=== PATIENT | female | born 1960 | race Caucasian/White ===

== ENCOUNTER 2017-11-07 12:24 | Inpatient (IN) | payer BC ==
[2017-11-07] MEDS ORDERED: SALINE 3% 15 ML NEB TX NEB ONE (13:00)
[2017-11-07] MEDS: DUONEB 0.5 MG/3 MG NEB SCH ×4 (13:00→20:47)
[2017-11-07] MEDS: NS 1/2 1000 ML IV 1,000 ML IV SCH (14:08)
[2017-11-07] MEDS ORDERED: DUONEB 0.5 MG/3 MG ONE (14:15)
[2017-11-07 14:26] VITALS: BMI 37.8
[2017-11-07] MEDS ORDERED: FLUVIRIN IM ONE (14:26)
[2017-11-07] MEDS ORDERED: SALINE 3% 15 ML NEB TX ONE (14:27)
[2017-11-07 14:37] LABS: ALANINE AMINOTRANSFERASE 31 Units/L (12-78); ALBUMIN 3.5 g/dL (3.4-5.0); ALKALINE PHOSPHATASE 137 Units/L (46-116); ASPARTATE AMINO TRANSFERASE 25 Units/L (15-37); BLOOD UREA NITROGEN 12 mg/dL (7-18); CALCIUM 9.1 mg/dL (8.5-10.1); CARBON DIOXIDE 26.6 mmol/L (21-32); CHLORIDE 107 mmol/L (98-107); CREATININE 0.83 mg/dL (0.55-1.02); SODIUM 143 mmol/L (136-145); eGFR BLACK RACES > 60 (>60); eGFR NON BLACK RACES > 60 (>60)
--- NOTE | 2017-11-07 14:37 | RAD ---
HISTORY: Pneumonia, cough Study: PA and lateral views of the chest Comparison:None Findings: No infiltrate, effusion or pneumothorax identified. The cardiac and mediastinal contours are within normal limits. The soft tissues are unremarkable. IMPRESSION: 1. No acute cardiopulmonary abnormality. Reported By:
[2017-11-07 14:46] LABS: BASOPHILS # (AUTO) 0.1 X10^3/uL (0.0-0.1); BASOPHILS % (AUTO) 0.8 % (0.2-1.0); EOSINOPHILS # (AUTO) 0.2 x10^3/uL (0.0-0.2); EOSINOPHILS % (AUTO) 2.6 % (0.9-2.9); HEMATOCRIT 36.8 % (36.0-47.0); HEMOGLOBIN 12.8 g/dL (12.0-16.0); LYMPHOCYTES # (AUTO) 2.4 X10^3/uL (1.3-2.9); LYMPHOCYTES % (AUTO) 33.1 % (21.0-51.0); MEAN CORPUSCULAR HEMOGLOBIN 30.1 pg (27.0-34.0); MEAN CORPUSCULAR HGB CONC 34.7 g/dL (33.0-35.0); MEAN CORPUSCULAR VOLUME 86.8 fL (80.0-100.0); MEAN PLATELET VOLUME 7.9 fL (7.4-11.0); MONOCYTES # (AUTO) 0.5 x10^3/uL (0.3-0.8); MONOCYTES % (AUTO) 7.4 % (0.0-13.0); NEUTROPHILS # (AUTO) 4.1 x10^3/uL (2.2-4.8); NEUTROPHILS % (AUTO) 56.1 % (42.0-75.0); PLATELET COUNT 193 X10^3/uL (150.0-450.0); RED BLOOD COUNT 4.24 X10^6/uL (3.5-5.4); WHITE BLOOD COUNT 7.4 X10^3/uL (3.6-10.0)
[2017-11-07] MEDS: LEVAQUIN PREMIX IV 750 MG 750 MG/150 ML BAG IV SCH (15:42)
[2017-11-07] MEDS: ROBITUSSIN DM PO SCH ×2 (16:06→21:57)
[2017-11-07] MEDS: TUSSIONEX PENNKINETIC SUSP PO PRN (22:54)
[2017-11-08] MEDS: DUONEB 0.5 MG/3 MG NEB SCH ×6 (01:12→21:49)
[2017-11-08] MEDS ORDERED: NS 1/2 1000 ML IV 1,000 ML IV ONE ×2 (03:39→20:01)
[2017-11-08] MEDS ORDERED: DUONEB 0.5 MG/3 MG ONE (03:43)
[2017-11-08] MEDS: NS 1/2 1000 ML IV 1,000 ML IV SCH ×2 (04:03→20:21)
[2017-11-08 06:43] LABS: ALANINE AMINOTRANSFERASE 29 Units/L (12-78); ALKALINE PHOSPHATASE 114 Units/L (46-116); ASPARTATE AMINO TRANSFERASE 16 Units/L (15-37); BLOOD UREA NITROGEN 10 mg/dL (7-18); CALCIUM 8.2 mg/dL (8.5-10.1); CARBON DIOXIDE 25.7 mmol/L (21-32); CHLORIDE 107 mmol/L (98-107); CREATININE 0.87 mg/dL (0.55-1.02); SODIUM 142 mmol/L (136-145); TOTAL PROTEIN 6.2 g/dL (6.4-8.2); eGFR BLACK RACES > 60 (>60); eGFR NON BLACK RACES > 60 (>60)
[2017-11-08 06:45] LABS: BASOPHILS % (AUTO) 0.6 % (0.2-1.0); EOSINOPHILS # (AUTO) 0.1 x10^3/uL (0.0-0.2); EOSINOPHILS % (AUTO) 2.1 % (0.9-2.9); HEMATOCRIT 34.9 % (36.0-47.0); HEMOGLOBIN 12.3 g/dL (12.0-16.0); LYMPHOCYTES # (AUTO) 2.3 X10^3/uL (1.3-2.9); LYMPHOCYTES % (AUTO) 39.1 % (21.0-51.0); MEAN CORPUSCULAR HEMOGLOBIN 30.5 pg (27.0-34.0); MEAN CORPUSCULAR HGB CONC 35.2 g/dL (33.0-35.0); MEAN CORPUSCULAR VOLUME 86.7 fL (80.0-100.0); MEAN PLATELET VOLUME 8.1 fL (7.4-11.0); MONOCYTES # (AUTO) 0.5 x10^3/uL (0.3-0.8); NEUTROPHILS % (AUTO) 50.2 % (42.0-75.0); PLATELET COUNT 171 X10^3/uL (150.0-450.0); RED BLOOD COUNT 4.03 X10^6/uL (3.5-5.4); RED CELL DISTRIBUTION WIDTH 13.2 % (11.6-16.5)
--- NOTE | 2017-11-08 07:30 | RAD ---
HISTORY: Cough, pneumonia Study: Chest AP portable Comparison: 11/07/2017 Findings: The heart is within normal limits in size. The candy are normal. The lungs are well inflated and free of acute infiltrates. No pleural effusions are identified. The bony thorax is unremarkable. IMPRESSION: No significant abnormality identified Reported By:
[2017-11-08] MEDS ORDERED: ATIVAN TAB 0.5 MG PO PRN (08:17)
[2017-11-08] MEDS: ROBITUSSIN DM PO SCH ×4 (08:21→20:22)
[2017-11-08] MEDS: LEVAQUIN PREMIX IV 750 MG 750 MG/150 ML BAG IV SCH (08:21)
[2017-11-08] MEDS ORDERED: TYLENOL 325 MG TAB PO PRN (08:27)
[2017-11-08] MEDS: CELEXA PO SCH (08:34)
[2017-11-08] MEDS: TUSSIONEX PENNKINETIC SUSP PO PRN ×2 (08:35→20:22)
--- NOTE | 2017-11-08 10:27 | DR.UPDATE ---
H&P Update History and Physical Update: WAS SEEN IN THE OFFICE ON 11/07/2017. A H&P WAS COMPLETED PRIOR TO ADMISSION. PATIENT HAS BEEN SEEN AND EXAMINED WITH NO CHANGES NOTED TO H&P. Changes noted: NO Yes with the following:
[2017-11-09] MEDS: DUONEB 0.5 MG/3 MG NEB SCH ×3 (01:28→08:30)
[2017-11-09 06:51] LABS: BASOPHILS % (AUTO) 0.7 % (0.2-1.0); EOSINOPHILS # (AUTO) 0.2 x10^3/uL (0.0-0.2); EOSINOPHILS % (AUTO) 3.5 % (0.9-2.9); HEMOGLOBIN 12.8 g/dL (12.0-16.0); LYMPHOCYTES # (AUTO) 2.3 X10^3/uL (1.3-2.9); MEAN CORPUSCULAR HEMOGLOBIN 30.7 pg (27.0-34.0); MEAN CORPUSCULAR HGB CONC 35.5 g/dL (33.0-35.0); MEAN CORPUSCULAR VOLUME 86.2 fL (80.0-100.0); MONOCYTES # (AUTO) 0.4 x10^3/uL (0.3-0.8); MONOCYTES % (AUTO) 7.5 % (0.0-13.0); NEUTROPHILS # (AUTO) 2.9 x10^3/uL (2.2-4.8); NEUTROPHILS % (AUTO) 49.3 % (42.0-75.0); PLATELET COUNT 181 X10^3/uL (150.0-450.0); RED BLOOD COUNT 4.18 X10^6/uL (3.5-5.4); RED CELL DISTRIBUTION WIDTH 13.2 % (11.6-16.5); WHITE BLOOD COUNT 5.8 X10^3/uL (3.6-10.0)
[2017-11-09 07:23] LABS: ALANINE AMINOTRANSFERASE 29 Units/L (12-78); ALBUMIN 3.2 g/dL (3.4-5.0); ALKALINE PHOSPHATASE 114 Units/L (46-116); ASPARTATE AMINO TRANSFERASE 20 Units/L (15-37); BLOOD UREA NITROGEN 12 mg/dL (7-18); CALCIUM 8.2 mg/dL (8.5-10.1); CARBON DIOXIDE 26.3 mmol/L (21-32); CHLORIDE 104 mmol/L (98-107); COR CA(FOR HYPOALB) 8.8 mg/dL (8.5-10.1); CREATININE 0.94 mg/dL (0.55-1.02); SODIUM 139 mmol/L (136-145); TOTAL PROTEIN 6.3 g/dL (6.4-8.2); eGFR BLACK RACES > 60 (>60); eGFR NON BLACK RACES > 60 (>60)
--- NOTE | 2017-11-09 08:15 | RAD ---
HISTORY: Cough, pneumonia Study: Chest AP portable Comparison: 11/08/2017 Findings: The heart is within normal limits in size. The candy are normal. The lungs are well inflated and clear . No pleural effusions are identified. The bony thorax is unremarkable. IMPRESSION: No significant abnormality identified Reported By:
[2017-11-09] MEDS: ROBITUSSIN DM PO SCH (08:30)
[2017-11-09] MEDS: LEVAQUIN PREMIX IV 750 MG 750 MG/150 ML BAG IV SCH (08:30)
[2017-11-09] MEDS: CELEXA PO SCH (08:30)
[2017-11-09 09:26] VITALS: BP 144/67
== END 2017-11-09 13:10 | disposition home or self-care (01) | DRG 195 ==
LOC: OBS 12:24
PROVIDERS: ADMIT Internal Medicine; ATTEND Internal Medicine
DX: J18.8 Other pneumonia, unspecified organism (principal); F32.89 Other specified depressive episodes; R50.9 Fever, unspecified
CPT/HCPCS: 36415; 71045; 71046; 80053; 85025; 87040; 90686; 94640; 94760; A4222; G0378; J1956; J7620

== ENCOUNTER 2022-11-21 15:34 | Observation (INO) ==
[2022-11-21] MEDS ORDERED: REMDESIVIR 200 MG in NS 250 ML IV 250 ML IV ONE (16:05)
--- NOTE | 2022-11-21 16:42 | EKG ---
Test Reason : chest pain Blood Pressure : */* mmHG Vent. Rate : 84 BPM Atrial Rate : 84 BPM P-R Int : 134 ms QRS Dur : 80 ms QT Int : 372 ms P-R-T Axes : 50 -16 41 degrees QTc Int : 439 ms Normal sinus rhythm with sinus arrhythmia Possible Inferior infarct , age undetermined Cannot rule out Anterior infarct , age undetermined Abnormal ECG No previous ECGs available Confirmed by Ed De La Cruz ([id number]) on 11/24/2022 5:34:00 PM Referred By: Confirmed By: Ed De La Cruz
[2022-11-21 16:50] LABS: BASOPHILS % (AUTO) 0.6 % (0.2-1.0); EOSINOPHILS # (AUTO) 0.1 x10^3/uL (0.0-0.2); HEMATOCRIT 40.2 % (36.0-47.0); LYMPHOCYTES # (AUTO) 1.1 X10^3/uL (1.3-2.9); LYMPHOCYTES % (AUTO) 18.9 % (21.0-51.0); MEAN CORPUSCULAR HEMOGLOBIN 30.1 pg (27.0-34.0); MEAN CORPUSCULAR HGB CONC 34.8 g/dL (33.0-35.0); MEAN CORPUSCULAR VOLUME 86.4 fL (80.0-100.0); MEAN PLATELET VOLUME 7.8 fL (7.4-11.0); MONOCYTES # (AUTO) 0.6 x10^3/uL (0.3-0.8); MONOCYTES % (AUTO) 11.5 % (0.0-13.0); NEUTROPHILS # (AUTO) 3.7 x10^3/uL (2.2-4.8); RED BLOOD COUNT 4.65 X10^6/uL (3.5-5.4); RED CELL DISTRIBUTION WIDTH 13.4 % (11.6-16.5); WHITE BLOOD COUNT 5.6 X10^3/uL (3.6-10.0)
[2022-11-21 16:56] VITALS: BMI 32.5
[2022-11-21 17:02] LABS: ALANINE AMINOTRANSFERASE 23 Units/L (12-78); ALBUMIN 3.6 g/dL (3.4-5.0); ALKALINE PHOSPHATASE 132 Units/L (46-116); ASPARTATE AMINO TRANSFERASE 24 Units/L (15-37); BLOOD UREA NITROGEN 8 mg/dL (7-18); CALCIUM 8.6 mg/dL (8.5-10.1); CARBON DIOXIDE 24.8 mmol/L (21-32); CHLORIDE 99 mmol/L (98-107); SODIUM 135 mmol/L (136-145); TOTAL PROTEIN 6.8 g/dL (6.4-8.2); eGFR NON BLACK RACES 54 (>60)
[2022-11-21] MEDS ORDERED: K-RIDER 10 MEQ/NS 100 ML 10 MEQ/100 ML BAG IV PRN (17:11)
[2022-11-21] MEDS ORDERED: MAGNESIUM SULFATE 1 GRAM/100 mL PREMIX 1 G/100 ML BAG IV PRN (17:11)
[2022-11-21] MEDS ORDERED: POTASSIUM CHLORIDE LIQ 20 MEQ UDC PO PRN (17:11)
[2022-11-21] MEDS ORDERED: MICRO K EXTEN CAP 10 MEQ PO PRN (17:11)
[2022-11-21] MEDS ORDERED: K-DUR TAB 20 MEQ PO PRN (17:11)
[2022-11-21] MEDS ORDERED: POTASSIUM CHL 40 MEQ/NS 0.45% 500 ML IV PRN (17:11)
[2022-11-21] MEDS ORDERED: KLOR-CON PO PRN (17:11)
[2022-11-21] MEDS ORDERED: POTASSIUM CHL 60 MEQ/NS 0.45% 500 ML IV PRN (17:11)
[2022-11-21] MEDS ORDERED: NS 1/2 1,000 ML IV 1,000 ML IV ONE (17:44)
[2022-11-21] MEDS: NS 1/2 1,000 ML IV 1,000 ML IV SCH (18:07)
[2022-11-21] MEDS: LEVAQUIN PREMIX IV 750 MG 750 MG/150 ML BAG IV SCH (18:08)
[2022-11-21] MEDS: VSL#3 PO SCH (18:08)
[2022-11-21] MEDS: SOLU-Medrol 40 MG VIAL IVP SCH ×2 (18:08→21:00)
[2022-11-21] MEDS: ROBITUSSIN DM PO SCH ×2 (18:08→20:47)
[2022-11-21] MEDS: TYLENOL 325 MG TAB PO PRN (20:05)
[2022-11-21] MEDS: PULMICORT NEB TX 0.5 MG NEB SCH (21:05)
[2022-11-21] MEDS: XOPENEX 1.25 MG/3 ML NEBULE NEB SCH (21:05)
--- NOTE | 2022-11-21 21:07 | EKG ---
Test Reason : Abnormal EKG Blood Pressure : */* mmHG Vent. Rate : 80 BPM Atrial Rate : 80 BPM P-R Int : 128 ms QRS Dur : 70 ms QT Int : 398 ms P-R-T Axes : 49 -14 14 degrees QTc Int : 459 ms Normal sinus rhythm Possible Inferior infarct (cited on or before 21-NOV-2022) Abnormal ECG When compared with ECG of 21-NOV-2022 16:36, (Unconfirmed) Questionable change in initial forces of Inferior leads ST now depressed in Inferior leads Confirmed by Ed De La Cruz (4) on 11/24/2022 5:33:33 PM Referred By: Confirmed By: Ed De La Cruz
[2022-11-21] MEDS: NYSTATIN POWDER TOP SCH (21:24)
--- NOTE | 2022-11-21 21:27 | RAD ---
HISTORYPneumoniaSTUDYCHEST, 1 VIEWCOMPARISONNone availableTECHNIQUEChest radiographic imaging, AP portable projection, 1 imageFINDINGSNo cardiomegaly.No focal airspace disease.No pleural effusion.No pneumothorax.No acute osseous abnormality.IMPRESSIONNo imaging findings of acute cardiopulmonary disease.Electronically signed by: Will Allan (Nov 21, 2022 21:26:37)
--- NOTE | 2022-11-22 02:54 | EKG ---
Test Reason : Abnormal EKG Blood Pressure : */* mmHG Vent. Rate : 77 BPM Atrial Rate : 77 BPM P-R Int : 134 ms QRS Dur : 78 ms QT Int : 412 ms P-R-T Axes : 48 -14 34 degrees QTc Int : 466 ms Normal sinus rhythm Possible Anterolateral infarct , age undetermined Abnormal ECG When compared with ECG of 21-NOV-2022 21:01, (Unconfirmed) Borderline criteria for Anterolateral infarct are now present Borderline criteria for Inferior infarct are no longer present Confirmed by Ed De La Cruz (4) on 11/24/2022 5:33:19 PM Referred By: Confirmed By: Ed De La Cruz
[2022-11-22 03:17] LABS: BASOPHILS % (AUTO) 0.2 % (0.2-1.0); EOSINOPHILS % (AUTO) 0.1 % (0.9-2.9); HEMATOCRIT 37.9 % (36.0-47.0); HEMOGLOBIN 13.2 g/dL (12.0-16.0); LYMPHOCYTES # (AUTO) 0.5 X10^3/uL (1.3-2.9); LYMPHOCYTES % (AUTO) 15.1 % (21.0-51.0); MEAN CORPUSCULAR HEMOGLOBIN 29.8 pg (27.0-34.0); MEAN CORPUSCULAR VOLUME 85.2 fL (80.0-100.0); MEAN PLATELET VOLUME 7.7 fL (7.4-11.0); MONOCYTES # (AUTO) 0.1 x10^3/uL (0.3-0.8); MONOCYTES % (AUTO) 2.3 % (0.0-13.0); NEUTROPHILS # (AUTO) 2.5 x10^3/uL (2.2-4.8); NEUTROPHILS % (AUTO) 82.3 % (42.0-75.0); RED BLOOD COUNT 4.44 X10^6/uL (3.5-5.4); RED CELL DISTRIBUTION WIDTH 13.2 % (11.6-16.5)
[2022-11-22 03:21] LABS: ALANINE AMINOTRANSFERASE 46 Units/L (12-78); ALBUMIN 3.1 g/dL (3.4-5.0); ALKALINE PHOSPHATASE 130 Units/L (46-116); ASPARTATE AMINO TRANSFERASE 51 Units/L (15-37); BLOOD UREA NITROGEN 8 mg/dL (7-18); CALCIUM 8.1 mg/dL (8.5-10.1); CARBON DIOXIDE 25.4 mmol/L (21-32); CHLORIDE 103 mmol/L (98-107); COR CA(FOR HYPOALB) 8.8 mg/dL (8.5-10.1); COR NA(FOR HYPERGLY) 137 mmol/L (136-145); CREATINE KINASE 46 Units/L (26-192); CREATININE 0.86 mg/dL (0.55-1.02); SODIUM 136 mmol/L (136-145); TOTAL PROTEIN 6.4 g/dL (6.4-8.2); eGFR NON BLACK RACES > 60 (>60)
[2022-11-22] MEDS: SOLU-Medrol 40 MG VIAL IVP SCH ×3 (05:05→21:00)
[2022-11-22] MEDS: NS 1/2 1,000 ML IV 1,000 ML IV SCH ×3 (05:06→20:44)
[2022-11-22] MEDS: TUSSIONEX PENNKINETIC SUSP PO PRN ×2 (05:09→20:44)
[2022-11-22] MEDS: XOPENEX 1.25 MG/3 ML NEBULE NEB SCH ×3 (06:10→20:30)
[2022-11-22] MEDS: ROBITUSSIN DM PO SCH ×4 (08:01→20:44)
[2022-11-22] MEDS: VSL#3 PO SCH (08:01)
[2022-11-22] MEDS: LEVAQUIN PREMIX IV 750 MG 750 MG/150 ML BAG IV SCH (08:02)
[2022-11-22] MEDS: PULMICORT NEB TX 0.5 MG NEB SCH ×2 (08:45→20:30)
[2022-11-22] MEDS: NYSTATIN POWDER TOP SCH ×2 (09:30→20:44)
[2022-11-22] MEDS: REMDESIVIR 100 MG in NS 250 ML IV 250 ML IV SCH (09:39)
--- NOTE | 2022-11-22 11:52 | CT ---
HISTORYELEVATED D DIMER, COVID.brSTUDYCTA CHESTCOMPARISONChest radiograph from 1 day prior.TECHNIQUECTA chest protocol with axial images from the thoracic inlet to upper abdomen with IV contrast. Sagittal and coronal reformats and MIP images were created. Automated exposure control was utilized.FINDINGSThe visualized thyroid gland appears benign. Mildly atherosclerotic normal caliber thoracic aorta. Mildly suboptimal contrast bolus timing. Normal caliber and patent central pulmonary artery. No discernible PE in the peripheral pulmonary vessels. The heart is normal in size. Trace pericardial effusion. No pathologic adenopathy in the thorax. Status post cholecystectomy. No acute osseous abnormality. The trachea and mainstem bronchi appear patent. No consolidation or segmental lung collapse. No pleural effusion or pneumothorax.IMPRESSIONNo discernible PE.Electronically signed by: Jamie Sanderson (Nov 22, 2022 11:51:26)
[2022-11-22] MEDS ORDERED: NS 1/2 1,000 ML IV 1,000 ML IV ONE (14:33)
[2022-11-23] MEDS ORDERED: NS 1/2 1,000 ML IV 1,000 ML IV ONE ×2 (03:28→07:59)
[2022-11-23] MEDS: NS 1/2 1,000 ML IV 1,000 ML IV SCH ×4 (03:35→23:20)
[2022-11-23 04:57] LABS: BASOPHILS % (AUTO) 0.1 % (0.2-1.0); HEMATOCRIT 35.3 % (36.0-47.0); HEMOGLOBIN 12.5 g/dL (12.0-16.0); LYMPHOCYTES # (AUTO) 0.9 X10^3/uL (1.3-2.9); LYMPHOCYTES % (AUTO) 11.4 % (21.0-51.0); MEAN CORPUSCULAR HEMOGLOBIN 30.3 pg (27.0-34.0); MEAN CORPUSCULAR HGB CONC 35.5 g/dL (33.0-35.0); MEAN CORPUSCULAR VOLUME 85.5 fL (80.0-100.0); MEAN PLATELET VOLUME 8.1 fL (7.4-11.0); MONOCYTES # (AUTO) 0.5 x10^3/uL (0.3-0.8); MONOCYTES % (AUTO) 5.9 % (0.0-13.0); NEUTROPHILS # (AUTO) 6.4 x10^3/uL (2.2-4.8); NEUTROPHILS % (AUTO) 82.6 % (42.0-75.0); RED BLOOD COUNT 4.13 X10^6/uL (3.5-5.4); RED CELL DISTRIBUTION WIDTH 13.1 % (11.6-16.5); WHITE BLOOD COUNT 7.7 X10^3/uL (3.6-10.0)
[2022-11-23 05:15] LABS: ALANINE AMINOTRANSFERASE 62 Units/L (12-78); ALBUMIN 2.9 g/dL (3.4-5.0); ALKALINE PHOSPHATASE 116 Units/L (46-116); ASPARTATE AMINO TRANSFERASE 41 Units/L (15-37); BLOOD UREA NITROGEN 13 mg/dL (7-18); CALCIUM 8.1 mg/dL (8.5-10.1); CARBON DIOXIDE 26.7 mmol/L (21-32); CHLORIDE 104 mmol/L (98-107); COR NA(FOR HYPERGLY) 139 mmol/L (136-145); CREATININE 0.82 mg/dL (0.55-1.02); SODIUM 138 mmol/L (136-145); TOTAL PROTEIN 5.9 g/dL (6.4-8.2); eGFR NON BLACK RACES > 60 (>60)
[2022-11-23] MEDS: SOLU-Medrol 40 MG VIAL IVP SCH ×3 (06:01→21:43)
[2022-11-23] MEDS: XOPENEX 1.25 MG/3 ML NEBULE NEB SCH ×3 (06:39→20:10)
--- NOTE | 2022-11-23 07:32 | RAD ---
HISTORYSOB, CHEST PAINSTUDYCHEST, 1 [id number]/14/2023.TECHNIQUEPA or AP view of the chestFINDINGSPatient is significantly rotated. Cardiac and mediastinal contours are within normal limits. Curvilinear right medial base opacity consistent with subsegmental atelectasis. Lungs are otherwise clear. No definite pleural effusion or pneumothorax.IMPRESSIONMinor right base subsegmental atelectasis.Electronically signed by: Jamie Sanderson (Nov 23, 2022 07:31:35)
[2022-11-23] MEDS: ROBITUSSIN DM PO SCH ×4 (08:19→21:43)
[2022-11-23] MEDS: LEVAQUIN PREMIX IV 750 MG 750 MG/150 ML BAG IV SCH (08:19)
[2022-11-23] MEDS: VSL#3 PO SCH (08:19)
[2022-11-23] MEDS: TYLENOL 325 MG TAB PO PRN (08:19)
[2022-11-23] MEDS: NYSTATIN POWDER TOP SCH ×2 (08:20→21:43)
[2022-11-23] MEDS: REMDESIVIR 100 MG in NS 250 ML IV 250 ML IV SCH (08:20)
[2022-11-23] MEDS: PULMICORT NEB TX 0.5 MG NEB SCH ×2 (08:36→20:10)
[2022-11-23] MEDS ORDERED: REMDESIVIR 100 MG in NS 250 ML IV 250 ML IV ONE (11:12)
--- NOTE | 2022-11-23 11:16 | DR.UPDATE ---
H&P Update H&P Reviewed: Yes Any changes to H&P?: Yes Changes noted:: PRESENTED TO THE OFFICE WITH REPORTS OF COUGH, CONGESTION, FEVER, HEADACHE, AND BODY ACHES. SHE REPORTS SHORTNESS OF BREATH AND CHEST DISCOMFORT AT TIMES. SHE DESCRIBES CHEST PRESSURE RATHER THAN PAIN. SHE DESCRIBES HEADACHE DULL AND THROBBING. SHE RATES PAIN A 4/10. SHE REPORTEDLY TESTED POSITIVE FOR COVID-19 TWO DAYS PRIOR. PATIENT HAS A PMH OF ASTHMA AND CHRONIC BRONCHITIS. SHE IS SUSCEPTIBLE TO PNEUMONIA. DECISION WAS MADE TO ADMIT THE PATIENT TO THE HOSPITAL OBSERVATION STATUS FOR FURTHER EVALUATION AND TREATMENT. ON ADMISSION, VITALS WERE: 97.9-98-18-95%-109/72. LABS WERE OBTAINED. WBC 5.6, RBC 4.65, HGB 14.0, HCT 40.2, PLT COUNT 177, D-DIMER 1.12, SODIUM 135, POTASSIUM 3.3, CHLORIDE 99, BUN 8, CREATININE 1.10, GLUCOSE 93, CALCIUM 8.6, AST 24, ALT 23, ALK PHOS 132, CRP 49, BNP 92.4, TOTAL PROTEIN 6.8, ALBUMIN 3.6, TROPONIN 7.2. A RESPIRATORY VIRAL PANEL WAS ST UP. BLOOD CULTURES WERE ALSO SET UP. A CHEST XRAY WAS OBTAINED AND REVEALED: No imaging findings of acute cardiopulmonary disease. WE OBTAINED A CHEST CTA. IT REVEALED: The visualized thyroid gland appears benign. Mildly atherosclerotic normal caliber thoracic aorta. Mildly suboptimal contrast bolus timing. Normal caliber and patent central pulmonary artery. No discernible PE in the peripheral pulmonary vessels. The heart is normal in size. Trace pericardial effusion. No pathologic adenopathy in the thorax. Status post cholecystectomy. No acute osseous abnormality. The trachea and mainstem bronchi appear patent. No consolidation or segmental lung collapse. No pleural effusion or pneumothorax. SHE WAS STARTED ON NORMAL SALINE AT 75 ML/HR, LEVAQUIN 750MG IV DAILY, REMDESIVIR 100MG IV DAILY, TUSSIONEX 5ML PO Q12H PRN, ROBITUSSIN DM 10ML QID, XOPENEX NEBS TID, PULMICORT NEBS BID, SOLU-MEDROL 40MG IV Q8H, THE POTASSIUM AND MAGNESIUM PROTCOLS, NYSTATIN POWDER BID, PROBIOTICS DAILY. OTHERWISE, WE PLAN TO FOLLOW-UP WITH AM LABS AND CONTINUE TO MONITOR. TIME SPENT ON CLINICAL ASSESSMENT, REVIWING LABS AND IMAGING, DECISION MAKING, AND DOCUMENTATION GREATER THAN 75 MINUTES. Patient was examined?: Yes
[2022-11-24 04:54] LABS: BASOPHILS % (AUTO) 0.1 % (0.2-1.0); HEMATOCRIT 36.3 % (36.0-47.0); HEMOGLOBIN 12.9 g/dL (12.0-16.0); LYMPHOCYTES # (AUTO) 0.9 X10^3/uL (1.3-2.9); LYMPHOCYTES % (AUTO) 9.5 % (21.0-51.0); MEAN CORPUSCULAR HEMOGLOBIN 30.3 pg (27.0-34.0); MEAN CORPUSCULAR HGB CONC 35.5 g/dL (33.0-35.0); MEAN CORPUSCULAR VOLUME 85.4 fL (80.0-100.0); MEAN PLATELET VOLUME 8.2 fL (7.4-11.0); MONOCYTES # (AUTO) 0.4 x10^3/uL (0.3-0.8); MONOCYTES % (AUTO) 3.8 % (0.0-13.0); NEUTROPHILS # (AUTO) 8.1 x10^3/uL (2.2-4.8); NEUTROPHILS % (AUTO) 86.6 % (42.0-75.0); RED BLOOD COUNT 4.26 X10^6/uL (3.5-5.4); RED CELL DISTRIBUTION WIDTH 13.6 % (11.6-16.5); WHITE BLOOD COUNT 9.4 X10^3/uL (3.6-10.0)
[2022-11-24] MEDS: XOPENEX 1.25 MG/3 ML NEBULE NEB SCH (05:03)
[2022-11-24 05:04] LABS: ALANINE AMINOTRANSFERASE 50 Units/L (12-78); ALBUMIN 2.9 g/dL (3.4-5.0); ALKALINE PHOSPHATASE 105 Units/L (46-116); ASPARTATE AMINO TRANSFERASE 23 Units/L (15-37); BLOOD UREA NITROGEN 13 mg/dL (7-18); CALCIUM 7.9 mg/dL (8.5-10.1); CARBON DIOXIDE 27.2 mmol/L (21-32); CHLORIDE 105 mmol/L (98-107); COR CA(FOR HYPOALB) 8.8 mg/dL (8.5-10.1); COR NA(FOR HYPERGLY) 141 mmol/L (136-145); CREATININE 0.77 mg/dL (0.55-1.02); SODIUM 140 mmol/L (136-145); TOTAL PROTEIN 5.7 g/dL (6.4-8.2); eGFR NON BLACK RACES > 60 (>60)
[2022-11-24] MEDS: SOLU-Medrol 40 MG VIAL IVP SCH (05:17)
[2022-11-24] MEDS: VSL#3 PO SCH (08:05)
[2022-11-24] MEDS: TYLENOL 325 MG TAB PO PRN (08:06)
[2022-11-24] MEDS: REMDESIVIR 100 MG in NS 250 ML IV 250 ML IV SCH (08:06)
[2022-11-24] MEDS: NYSTATIN POWDER TOP SCH (08:06)
[2022-11-24] MEDS: ROBITUSSIN DM PO SCH (08:07)
[2022-11-24 08:33] VITALS: BP 156/79
[2022-11-24] MEDS: PULMICORT NEB TX 0.5 MG NEB SCH (08:41)
[2022-11-24] MEDS: LEVAQUIN PREMIX IV 750 MG 750 MG/150 ML BAG IV SCH (09:43)
== END 2022-11-24 12:23 | disposition home or self-care (01) ==
LOC: ICU
PROVIDERS: ADMIT Internal Medicine; ATTEND Internal Medicine
DX: R07.89 Other chest pain; R21 Rash and other nonspecific skin eruption; R51.9 Headache, unspecified; B95.3 Streptococcus pneumoniae as the cause of diseases classified elsewhere; R79.82 Elevated C-reactive protein (CRP); R06.02 Shortness of breath; J12.82 Pneumonia due to coronavirus disease 2019; R79.1 Abnormal coagulation profile; U07.1 COVID-19

== ENCOUNTER 2023-02-12 12:16 | Observation (INO) ==
[2023-02-12 12:34] VITALS: BMI 33.5
--- NOTE | 2023-02-12 12:46 | ED.ABDFE ---
HPI Time Seen Time Seen by Provider: 02/12/23 12:45 PCP Primary Care Physician: SELWYN CHILEL HPI Comment HPI Comment: PATIENT IS 63YR OLD FEMALE IN ER WITH LUQ ABDOMINAL PAIN NATASHA WAS DULL ACHE NOTED YESTERDAY. THIS MORNING, PAIN IS PERIUMBILICAL AND IS ASSOCIATED WITH BAUSEA AND VOMITING. PATIENT SAID A KNOT WAS IN THE AREA LIKE A HERNIA. Complaint Chief Complaint:: PT STATES THAT YESTERDAY AFTERNOON SHE HAD A SUDDEN ONSET OF CONSTANT DULL ACHING PAIN IN THE LEFT UPPER QUADRANT. THIS MORNING WHEN SHE WOKE UP THE PAIN WAS PERIUMBILICAL CONSTANT SHARP STABBING AND IS ASSOCIATED WITH NAUSEA AND VOMITING. PT ALSO C/O MILD CONSTIPATION. PT STATES THAT EARLIER WHEN SHE SAT UP SHE FELT A LARGE KNOT IN HER UMBILICAL AREA. COVID-19 Coronavirus risk:travel/contact w/high risk person: No Has patient experienced Coronavirus symptoms: No Reviewed Nurses Notes Review: Yes Source History Provided: Patient Mode of arrival Mode of Arrival: Ambulatory Timing Onset of Chief Complaint: 02/11/23 PMH PMH Past Medical History: Yes Past Medical History: Arthritis, Kidney Stones and Sleep Apnea Past Surgical History: Yes Surgical History: and Hysterectomy Past Surgical History Comment: SINUS SURGERY, LEFT TKA Family History History of Family Medical Conditions: Yes Family Medical History: Diabetes Mellitus and Cancer Social History Does patient currently use any type of tobacco product: No Have you used tobacco products in the last 12 months: No Type of Tobacco Use: None Alcohol Use: None Do you use any recreational Drugs:: No Lives With: Spouse Lives Where: Home Travel Risk Coronavirus risk:travel/contact w/high risk person: No Has patient experienced Coronavirus symptoms: No Infectious screening In the last 2 months have you had wt loss of >10#?: NO Have you had fever, night sweats or hemotysis?: No Have you traveled outside the country in the last 6 months?: No Isolation: Standard ROS Review of Systems Constitutional: No Symptoms Reported; negative Fever, Weakness or Fatigue Eyes: No Symptoms Reported ENTM: No Symptoms Reported; negative Nose Discharge or Nose Congestion Respiratoy: No Symptoms Reported; negative Moist Cough or Short of Breath Cardiovascular: No Symptoms Reported; negative Chest Pain Gastrointestinal/Abdominal: Abdominal Pain, Nausea and Vomiting Genitourinary: No Symptoms Reported; negative Dysuria Neurological: No Symptoms Reported; negative Headache, Weakness or Dizziness Musculoskeletal: No Symptoms Reported; negative Muscle Pain Integumentary: No Symptoms Reported; negative Rash or Juandice Hematologic/Lymphatic: No Symptoms Reported Endocrine: No Symptoms Reported; negative Increased Thirst or Increased Urine Psychiatric: No Symptoms Reported All Other Systems: Reviewed and Negative PE Vital Signs Vitals: Temperature 98.9 F Pulse Rate 98 Respiratory Rate 20 Blood Pressure [Right Arm] 144/67 Blood Pressure [Left Arm] 117/56 Blood Pressure 135/77 Blood Pressure 156/79 O2 Sat by Pulse Oximetry 100 General Limitations: No Limitations General Appearance: Alert and In Distress Head Head Exam: Normal Inspection Eyes Eye exam: Normal Appearance and PERRL; negative Scleral Icterus or Conjunctival Injection ENT ENT Exam: Normal Exam, Normal Oropharynx, Normal External Ear Exam and TM's Normal Bilaterally Neck Neck Exam: Normal Inspection and Trachea Midline; negative Tenderness Chest Chest Inspection: Normal Inspection and Symmetric Chest Wall Rise; negative Tenderness Respiratory Respiratory Exam: Respiratory Distress; negative Accessory Muscle Use or Chest Wall Tenderness Cardiovascular Cardiovascular Exam: Regular Rate, Normal Rhythm, Normal Heart Sounds and +S3; negative Systolic Murmur or Diastolic Murmur Abdominal Exam Abdominal Exam: Normal Inspection, Normal Bowel Sounds and Soft; negative Tenderness Rectal Rectal Exam: Deferred Back Back Exam: Normal Inspection; negative (R) CVA Tenderness or (L) CVA Tenderness Extremeties Extremities Exam: Normal Capillary Refill and Edema External Exam: Female: Deferred : Speculum Exam (Female): Deferred : Bimanual Exam (female): Deferred Neurologic Neurological Exam: Alert and Oriented X3; negative Motor Sensory Deficit Psychiatric Psychiatric Exam: Normal Affect and Normal Mood Skin Skin Exam: Intact MDM Differential Diagnosis Differential Diagnosis- Considerations may include:: Bowel Obstruction, Constipation, Diverticular disease, Hernia, Inflammatory BD, Urinary tract infection and Urolithiasis COURSE Treatment Treatment: SEE ORDERS DONE WHILE IN ER. LABS AND CT REPORT DISCUSSED WITH PATIENT. SHE WILL BE ADMITTED TO HOSPITAL. Consultation Consultation Comments: PATIENT ADMITTED BY DR. GONSALVES. SURGEON, DR. RUEDA CONSULTED. Education/Counseling Education/Counseling: Patient Educated On: Diagnosis and Needs for Follow Up ROR Labs Reviewed Laboratory Results Reviewed?: Yes Result Diagrams: 02/15/23 05:05 02/15/23 05:05 Laboratory: WBC 7.7 X10^3/uL (3.6-10.0) 02/12/23 13:05 RBC 4.52 X10^6/uL (3.5-5.4) 02/12/23 13:05 Hgb 13.5 g/dL (12.0-16.0) 02/12/23 13:05 Hct 38.9 % (36.0-47.0) 02/12/23 13:05 MCV 86.0 fL (80.0-100.0) 02/12/23 13:05 MCH 30.0 pg (27.0-34.0) 02/12/23 13:05 MCHC 34.8 g/dL (33.0-35.0) 02/12/23 13:05 RDW 13.5 % (11.6-16.5) 02/12/23 13:05 Plt Count 191 X10^3/uL (150.0-450.0) 02/12/23 13:05 MPV 7.7 fL (7.4-11.0) 02/12/23 13:05 Neut % (Auto) 68.7 % (42.0-75.0) 02/12/23 13:05 Lymph % (Auto) 22.2 % (21.0-51.0) 02/12/23 13:05 [place] % (Auto) 6.4 % (0.0-13.0) 02/12/23 13:05 Eos % (Auto) 2.0 % (0.9-2.9) 02/12/23 13:05 Baso % (Auto) 0.7 % (0.2-1.0) 02/12/23 13:05 Neut # (Auto) 5.3 x10^3/uL (2.2-4.8) H 02/12/23 13:05 Lymph # (Auto) 1.7 X10^3/uL (1.3-2.9) 02/12/23 13:05 [place]at # (Auto) 0.5 x10^3/uL (0.3-0.8) 02/12/23 13:05 Eos # (Auto) 0.2 x10^3/uL (0.0-0.2) 02/12/23 13:05 Baso # (Auto) 0.1 X10^3/uL (0.0-0.1) 02/12/23 13:05 Absolute Nucleated RBC 0.0 /100WBC 02/12/23 13:05 Sodium 140 mmol/L (136-145) 02/12/23 13:05 Corrected Sodium TNP 02/12/23 13:05 Potassium 3.8 mmol/L (3.5-5.1) 02/12/23 13:05 Chloride 104 mmol/L (98-107) 02/12/23 13:05 Carbon Dioxide 28.8 mmol/L (21-32) 02/12/23 13:05 BUN 7 mg/dL (7-18) 02/12/23 13:05 Creatinine 0.90 mg/dL (0.55-1.02) 02/12/23 13:05 Est GFR (MDRD) Af Amer > 60 (>60) 02/12/23 13:05 Est GFR (MDRD) Non-Af > 60 (>60) 02/12/23 13:05 Glucose 95 mg/dL (65-99) 02/12/23 13:05 Calcium 8.6 mg/dL (8.5-10.1) 02/12/23 13:05 Corrected Calcium TNP 02/12/23 13:05 Total Bilirubin 0.30 mg/dL (0.2-1.0) 02/12/23 13:05 AST 15 Units/L (15-37) 02/12/23 13:05 ALT 23 Units/L (12-78) 02/12/23 13:05 Alkaline Phosphatase 104 Units/L (46-116) 02/12/23 13:05 Total Protein 6.6 g/dL (6.4-8.2) 02/12/23 13:05 Albumin 3.7 g/dL (3.4-5.0) 02/12/23 13:05 Globulin 2.9 g/dL (2.5-4.5) 02/12/23 13:05 Albumin/Globulin Ratio 1.3 Ratio (1.1-2.1) 02/12/23 13:05 Amylase 36 Units/L (25-115) 02/12/23 13:05 Lipase 77 Units/L (73-393) 02/12/23 13:05 Specimen Type Clean catch urine 02/12/23 12:46 Urine Color Straw (YELLOW) 02/12/23 12:46 Urine Appearance Clear (CLEAR) 02/12/23 12:46 Urine pH 8.0 (5.0 - 8.0) 02/12/23 12:46 Ur Specific [place] 1.010 (1.000-1.030) 02/12/23 12:46 Urine Protein Negative (NEGATIVE) 02/12/23 12:46 Urine Glucose (UA) Negative (NEGATIVE) 02/12/23 12:46 Urine Ketones Negative (NEGATIVE) 02/12/23 12:46 Urine Blood Negative (NEGATIVE) 02/12/23 12:46 Urine Nitrite Negative (NEGATIVE) 02/12/23 12:46 Urine Bilirubin Negative (NEGATIVE) 02/12/23 12:46 Urine Urobilinogen Normal (NORMAL) 02/12/23 12:46 Ur Leukocyte Esterase Negative (NEGATIVE) 02/12/23 12:46 XRAY XRAY Interpreted by: Radiologist (REPORT NOTED.) and Self Opioid Opioid Risk Tool Age (Jax box if 16-45): No History of Preadolescent Sexual Abuse: No Total: 0 Total Score Risk Category: Low Risk Copyright: Alejo VALENTIN predicting aberrant behaviors Discharge Plan Diagnosis Discharge Problem: Partial small bowel obstruction Abdominal pain Qualifiers: Abdominal location: periumbilical Qualified Code(s): R10.33 - Periumbilical pain Discharge Plan Patient Disposition: ADMITTED INPATIENT Condition: Stable Prescription drug monitoring program results: PDMP reviewed and no concerns identified Discharge Comment: REPORT NOTED. Orders to Discharge Patient Discharge Orders: Discharge (Routine); Ordered 02/15/23 Ordered By: Surendra Gonsalves
[2023-02-12 13:13] LABS: APPEARANCE,URINE CLEAR (CLEAR); BILIRUBIN,URINE NEGATIVE (NEGATIVE); BLOOD/HEMOGLOBIN,URINE NEGATIVE (NEGATIVE); COLOR,URINE STRAW (YELLOW); GLUCOSE, URINE NEGATIVE (NEGATIVE); KETONES,URINE NEGATIVE (NEGATIVE); LEUKOCYTE ESTERASE ,URINE NEGATIVE (NEGATIVE); NITRITES,URINE NEGATIVE (NEGATIVE); PROTEIN,URINE NEGATIVE (NEGATIVE); UROBILINOGEN,URINE NORMAL (NORMAL)
[2023-02-12 13:15] LABS: BASOPHILS # (AUTO) 0.1 X10^3/uL (0.0-0.1); BASOPHILS % (AUTO) 0.7 % (0.2-1.0); EOSINOPHILS # (AUTO) 0.2 x10^3/uL (0.0-0.2); HEMATOCRIT 38.9 % (36.0-47.0); HEMOGLOBIN 13.5 g/dL (12.0-16.0); LYMPHOCYTES # (AUTO) 1.7 X10^3/uL (1.3-2.9); LYMPHOCYTES % (AUTO) 22.2 % (21.0-51.0); MEAN CORPUSCULAR HGB CONC 34.8 g/dL (33.0-35.0); MEAN PLATELET VOLUME 7.7 fL (7.4-11.0); MONOCYTES # (AUTO) 0.5 x10^3/uL (0.3-0.8); MONOCYTES % (AUTO) 6.4 % (0.0-13.0); NEUTROPHILS # (AUTO) 5.3 x10^3/uL (2.2-4.8); NEUTROPHILS % (AUTO) 68.7 % (42.0-75.0); PLATELET COUNT 191 X10^3/uL (150.0-450.0); RED BLOOD COUNT 4.52 X10^6/uL (3.5-5.4); RED CELL DISTRIBUTION WIDTH 13.5 % (11.6-16.5); WHITE BLOOD COUNT 7.7 X10^3/uL (3.6-10.0)
[2023-02-12 13:24] LABS: ALANINE AMINOTRANSFERASE 23 Units/L (12-78); ALBUMIN 3.7 g/dL (3.4-5.0); ALKALINE PHOSPHATASE 104 Units/L (46-116); AMYLASE 36 Units/L (25-115); ASPARTATE AMINO TRANSFERASE 15 Units/L (15-37); BLOOD UREA NITROGEN 7 mg/dL (7-18); CALCIUM 8.6 mg/dL (8.5-10.1); CARBON DIOXIDE 28.8 mmol/L (21-32); CHLORIDE 104 mmol/L (98-107); GLUCOSE 95 mg/dL (65-99); LIPASE 77 Units/L (73-393); POTASSIUM 3.8 mmol/L (3.5-5.1); SODIUM 140 mmol/L (136-145); TOTAL PROTEIN 6.6 g/dL (6.4-8.2); eGFR NON BLACK RACES > 60 (>60)
--- NOTE | 2023-02-12 14:23 | CT ---
ABDOMEN/PELVIS W/O CONHISTORY: Umbilical painComparison:NoneTechnique:Multiple non contrast axial images of the abdomen and pelvis were obtained from the lung bases to the pubic symphysis.. Dose reduction techniques including Automated Exposure Control (AEC) and adjustment of mA and kV were utlized.Findings:The sensitivity for focal lesion detection within the solid abdominal viscera is diminished without the use of IV contrast.The heart is normal in size. There is no pericardial effusion. Lung bases are clear without focal consolidation, pleural effusion or pneumothorax.Liver and spleen are normal in size, contour. No focal lesions. No ductal dilitation. Gallbladder absent. The pancreas is unremarkable. Adrenal glands are normal. Kidneys are without hydronephrosis or nephrolithiasis.Isolated loop of prominent small bowel in the left upper abdomen measuring 3.6 cm. There appears to be a transition and abrupt decompression just deep to patient's umbilical hernia although there is no definite involvement of bowel within the hernia site. Distal small bowel is compared to bleed decompressed but there is stool within the colon. Fat containing umbilical hernia. There is some inflammatory change within the contained fat. No bowel involvement. No abnormal appearing mesenteric or retroperitoneal lymph nodes. . No free fluid or fluid collections.The bladder is normal in appearance. Uterus absent. No free fluid or abnormal pelvic lymph nodes.No aggressive osseous lesions.IMPRESSION:1.Isolated loop of prominent small bowel left abdomen with what appears to be a transition point. Partial small bowel obstruction should be considered. Correlate with bowel habits. There is also a fat containing umbilical hernia that appears to be mildly inflamed and is another possible source of abdominal pain.Electronically signed by: JULIETTE FOX (Feb 12, 2023 14:21:33)
[2023-02-12] MEDS ORDERED: NS 1,000 ML IV 1,000 ML ONE (14:45)
[2023-02-12] MEDS ORDERED: NS 1,000 ML IV 1,000 ML IV SCH (15:00)
[2023-02-12] MEDS ORDERED: ZOFRAN INJ 4 MG VIAL IVP PRN (15:09)
[2023-02-12] MEDS: NS 1,000 ML IV 1,000 ML IV SCH (16:13)
--- NOTE | 2023-02-12 23:48 | DR.CONSULT ---
CONSULT Consultation for Day of: Date: 02/12/23 Chief Complaint Chief Complaint: Abdominal pain. Allergies Allergies Allergy/AdvReac Type Severity Reaction Status Date / Time No Known Drug Allergies Allergy Verified 02/12/23 12:35 History of Present Illness History of Present Illness: 62 year old female who presented with acute onset of abdominal pain to the left of the umbilicus . She has noted a mass effect of the umbilical area since a recent 65 lb weight loss on Semiglutide. She was evaluated in the emergency room and CT scan showed an incarcerated umbilical hernia which appears to be preperitoneal fat. There is a question of transition zone area of the small bowel adjacent to this. Past Medical History Past Medical History: Arthritis, Kidney Stones and Sleep Apnea Past Surgical History Surgical History: Hysterectomy, Joint Replacement and Other Family History Family Medical History: Diabetes Mellitus and Cancer Social History Does patient currently use any type of tobacco product: No Have you used tobacco products in the last 12 months: No Type of Tobacco Use: None Alcohol Use: None Drug Use: None Medications Home Medications: No Known Drug Allergies Allergy (Verified 02/12/23 12:35) Semiglutide Review of Systems Constitutional: See HPI Eyes: No Symptoms Reported ENT: No Symptoms Reported Respiratory: No Symptoms Reported Cardiovascular: No Symptoms Reported Gastrointestinal: See HPI Genitourinary: No Symptoms Reported Musculoskeletal: No Symptoms Reported Skin: No Symptoms Reported Neurological: No Symptoms Reported Physical Exam Vital Signs: Temperature 97.8 F Temperature 98.9 F Pulse Rate [Right] 73 Pulse Rate 98 Respiratory Rate 18 Respiratory Rate 20 Blood Pressure [Right Arm] 176/88 Blood Pressure [Left Arm] 117/56 Blood Pressure 135/77 Blood Pressure 156/79 O2 Sat by Pulse Oximetry 100 O2 Sat by Pulse Oximetry 100 Oriented: Normal, Time, Person and Place Eyes: Normal Ear: Normal Throat: Normal Respiratory: Clear Throughout Cardiovascular: Normal : Normal Auscultation: Bowel Sounds: Normal Palpation: Other (5 cm umbilical hernia could not be reduced) Tenderness: Periumbilical Skin: Normal Musculoskeletal: Normal Psychiatric: Normal Mood Description: Calm Affect: Normal Speech Pattern: Clear Plan (1) Incarcerated umbilical hernia: Status: Acute Plan: Will plan laparoscopic umbilical/ ventral hernia repair.
[2023-02-13] MEDS: NS 1,000 ML IV 1,000 ML IV SCH ×4 (02:01→22:06)
--- NOTE | 2023-02-13 05:51 | RAD ---
HISTORYSmall-bowel obstructionSTUDYKUBCOMPARISONNone br.br.br nonobstructive bowel gas pattern with significant amount of distal colonic gas noted to be present no pathological soft tissue mass or calcification can be observed. The bony structures are grossly intact.IMPRESSIONMinimal amount of small bowel gas is observed with significant distal colonic gas observed.Electronically signed by: SUMEET MCGUIRE (Feb 13, 2023 05:50:22)
[2023-02-13 06:31] LABS: BASOPHILS # (AUTO) 0.1 X10^3/uL (0.0-0.1); BASOPHILS % (AUTO) 0.7 % (0.2-1.0); EOSINOPHILS # (AUTO) 0.4 x10^3/uL (0.0-0.2); HEMATOCRIT 41.3 % (36.0-47.0); HEMOGLOBIN 14.3 g/dL (12.0-16.0); LYMPHOCYTES # (AUTO) 2.5 X10^3/uL (1.3-2.9); MEAN CORPUSCULAR HEMOGLOBIN 29.8 pg (27.0-34.0); MEAN CORPUSCULAR HGB CONC 34.5 g/dL (33.0-35.0); MEAN CORPUSCULAR VOLUME 86.4 fL (80.0-100.0); MEAN PLATELET VOLUME 8.1 fL (7.4-11.0); MONOCYTES # (AUTO) 0.5 x10^3/uL (0.3-0.8); MONOCYTES % (AUTO) 6.6 % (0.0-13.0); NEUTROPHILS # (AUTO) 4.1 x10^3/uL (2.2-4.8); NEUTROPHILS % (AUTO) 54.7 % (42.0-75.0); PLATELET COUNT 206 X10^3/uL (150.0-450.0); RED BLOOD COUNT 4.78 X10^6/uL (3.5-5.4); RED CELL DISTRIBUTION WIDTH 13.3 % (11.6-16.5); WHITE BLOOD COUNT 7.5 X10^3/uL (3.6-10.0)
[2023-02-13 06:46] LABS: ALANINE AMINOTRANSFERASE 24 Units/L (12-78); ALBUMIN 3.7 g/dL (3.4-5.0); ALKALINE PHOSPHATASE 113 Units/L (46-116); ASPARTATE AMINO TRANSFERASE 18 Units/L (15-37); BLOOD UREA NITROGEN 5 mg/dL (7-18); CALCIUM 8.4 mg/dL (8.5-10.1); CARBON DIOXIDE 23.6 mmol/L (21-32); CHLORIDE 104 mmol/L (98-107); GLUCOSE 97 mg/dL (65-99); POTASSIUM 4.1 mmol/L (3.5-5.1); SODIUM 138 mmol/L (136-145); TOTAL PROTEIN 6.7 g/dL (6.4-8.2); eGFR NON BLACK RACES > 60 (>60)
--- NOTE | 2023-02-13 13:15 | NOTE.SOAP ---
Soap Note Note for Day of Date of Exam: 02/13/23 Subjective Data Subjective Data: Has incarcerated umbilical / ventral hernia. Cannot get on OR schedule until 0730 AM of 02/14/2023. Patient doing well. Objective Data Temperature: 97.9 F Pulse Rate: 81 Respiratory Rate: 18 Blood Pressure: 129/70 O2 Sat by Pulse Oximetry: 95 Objective Data: Incarcerated ventral hernia , tenderness less. Taking diet Assessment Assessment: incarcerated ventral hernia. Plan Plan: Plan laparoscopic ventral hernia repair in AM.
--- NOTE | 2023-02-13 15:39 | DR.H&P ---
H&P - History & Physical for Day of: H&P Date: 02/12/23 - Chief Complaint Chief Complaint: ABDOMINAL PAIN, NAUSEA, VOMITING, CONSTIPATION - History of Present Illness History of Present Illness: IS A 62 YEAR OLD PATIENT OF OURS. SHE P RESENTED TO THE ER WITH COMPLAINTS OF SUDDEN ONSET OF PAIN IN THE LEFT UPPER QUADRANT AND PERIUMBILICAL AREA. SHE DESCRIBES PAIN SHARP AND STABBLING. PAIN IS CONSTANT. SHE RATES PAIN A 8/10. ASSOCIATED SYMPTOMS INCLUDE NAUSEA, VOMITING, AND CONSTIPATION. SHE REPORTS FEELING A LARGE KNOW IN HER UMBILICAL AREA. SYMPTOMS STARTED UPON AWAKENING ON 02/12/23. SHE ADMITS TO A 65 POUND WEIGHT LOSS ON SEMIGLUTIDE. HER PMH INCLUDES: ARTHRITIS, KIDNEY STONES, SLEEP APNEA, C- SECTION, HYSTERECTOMY. EXAMINATION REVEALED A 5CM UMBILICAL HERNIA THAT COULD NOT BE REDUCED. ON ARRIVAL TO HOSPITAL, VITALS WERE: 98.9-98-20-100%-135/77. LABS WERE OBTAINED. WBC 7.7, RBC 4.52, HGB 13.5, HCT 38.9, PLT COUNT 191, SODIUM 140, POTASSIUM 3.8, CHLORIDE 104, CARBON DIOXIDE 28.8, BUN 7, CREATININE 0.90, GLUCOSE 95, CALCIUM 8.6, TOTAL BILI 0.30, AST 15, ALT 23, ALK PHOS 104, TOTAL PROTEIN 6.6, ALBUMIN 3.7, AMYLASE 36, LIPASE 77. A URINALYSIS WAS OBTAINED AND WAS UNREMARKABLE. AN ABDOMEN/PELVIS CT WITHOUT CONTRAST WAS OBTAINED AND REVEALED: 1.Isolated loop of prominent small bowel left abdomen with what appears to be a transition point. Partial small bowel obstruction should be considered. Correlate with bowel habits. There is also a fat containing umbilical hernia that appears to be mildly inflamed and is another possible source of abdominal pain. CONSULTED WITH PATIENT WHILE SHE WAS IN THE ER. HE PLANS FOR A LAPROSCOPIC UMBILICAL/VENTRAL HERNIA REPAIR. WE ARE IN AGREEMENT WITH HIS PLANS. SHE WAS ADMITTED TO THE HOSPITAL FOR FURTHER EVALUATION AND TREATMENT OF SMALL BOWEL OBSTRUCTION, INCARCERATED HERNIA, ABDOMINAL PAIN SHE WAS STARTED ON NORMAL SALINE AT 100 ML/HR, PEPCID 20MG IV Q12H, PROTONIX 40MG IV BID, ZOFRAN 4MG IV Q6H PRN. OTHERWISE, WE WILL FOLLOW-UP WITH AM LABS AND CONTINUE TO MONITOR. TIME SPENT ON CLINICAL ASSESSMENT, REVIEWING LABS AND IMAGING, DECISION MAKING, AND DOCUMENTATION GREATER THAN 75 MINUTES. - Past Medical History Past Medical History: Arthritis, Kidney Stones, Sleep Apnea - Past Surgical History Surgical History: Hysterectomy, Joint Replacement, Other - Family History Family Medical History: Diabetes Mellitus, Cancer - Social History Does patient currently use any type of tobacco product: No Have you used tobacco products in the last 12 months: No Type of Tobacco Use: None Alcohol Use: None Drug Use: None - Medications Home Medications: Home Medications Medication Instructions Recorded Confirmed Type semaglutide (weight loss) 2.4 2.4 mg subcut QWEEK 11/21/22 02/12/23 History mg/0.75 mL subcutaneous pen injector ([employer]) - Review of Systems Constitutional: Weakness Eyes: No Symptoms Reported ENT: No Symptoms Reported Respiratory: No Symptoms Reported Cardiovascular: No Symptoms Reported Gastrointestinal: Nausea, Vomiting, Abdominal Pain, Constipation Genitourinary: No Symptoms Reported Musculoskeletal: No Symptoms Reported Skin: No Symptoms Reported Neurological: Weakness - Physical Exam Vital Signs: Temperature 97.9 F Pulse Rate [Right] 81 Pulse Rate 81 Respiratory Rate 18 Blood Pressure [Right Arm] 129/70 Blood Pressure [Left Arm] 117/56 Blood Pressure 129/70 O2 Sat by Pulse Oximetry 95 Oriented: Normal, Time, Person, Place Eyes: Normal Ear: Normal Nose: Normal Throat: Normal Respiratory: Clear Throughout Cardiovascular: Normal : Normal Auscultation: Bowel Sounds: Decreased Palpation: Normal Tenderness: LUQ, Periumbilical, Moderate Skin: Decreased Turgur Musculoskeletal: Normal Psychiatric: Normal Mood Description: Calm Affect: Normal Speech Pattern: Clear - Assessment/Plan (1) Small bowel obstruction Status: Acute Plan: ADMIT, LAPROSCOPIC HERNIA REPAIR, NORMAL SALINE AT 100 ML/HR, PEPCID 20MG IV Q12H, PROTONIX 40MG IV BID, ZOFRAN 4MG IV Q6H PRN. (2) Incarcerated umbilical hernia Status: Acute (3) Abdominal pain Qualifiers: Abdominal location: periumbilical Qualified Code(s): R10.33 - Periumbilical pain Status: Acute (4) Nausea and vomiting Qualifiers: Vomiting type: unspecified Qualified Code(s): R11.2 - Nausea with vomiting, unspecified Status: Acute (5) Osteoarthritis Qualifiers: Osteoarthritis location: multiple joints Osteoarthritis type: primary Qualified Code(s): M15.9 - Polyosteoarthritis, unspecified Status: Chronic - Allergies Allergies/Adverse Reactions: Allergies Allergy/AdvReac Type Severity Reaction Status Date / Time No Known Drug Allergies Allergy Verified 02/12/23 12:35
[2023-02-14] MEDS ORDERED: LR 1,000 ML IV 1,000 ML IV ONE (06:55)
[2023-02-14] MEDS ORDERED: ANCEF VIAL 1 GRAM ONE (06:55)
[2023-02-14] MEDS ORDERED: MARCAINE/EPINEPHRINE ONE (06:55)
[2023-02-14] MEDS ORDERED: NS 100 ML IV 100 ML ONE (06:56)
[2023-02-14 07:20] LABS: BASOPHILS % (AUTO) 0.7 % (0.2-1.0); EOSINOPHILS # (AUTO) 0.3 x10^3/uL (0.0-0.2); EOSINOPHILS % (AUTO) 5.1 % (0.9-2.9); HEMATOCRIT 36.6 % (36.0-47.0); HEMOGLOBIN 12.8 g/dL (12.0-16.0); LYMPHOCYTES % (AUTO) 34.6 % (21.0-51.0); MEAN CORPUSCULAR HGB CONC 34.9 g/dL (33.0-35.0); MEAN CORPUSCULAR VOLUME 86.1 fL (80.0-100.0); MONOCYTES # (AUTO) 0.5 x10^3/uL (0.3-0.8); MONOCYTES % (AUTO) 8.1 % (0.0-13.0); NEUTROPHILS % (AUTO) 51.5 % (42.0-75.0); PLATELET COUNT 181 X10^3/uL (150.0-450.0); RED BLOOD COUNT 4.25 X10^6/uL (3.5-5.4); RED CELL DISTRIBUTION WIDTH 13.3 % (11.6-16.5); WHITE BLOOD COUNT 5.8 X10^3/uL (3.6-10.0)
[2023-02-14 07:22] LABS: ALANINE AMINOTRANSFERASE 20 Units/L (12-78); ALBUMIN 2.9 g/dL (3.4-5.0); ALKALINE PHOSPHATASE 89 Units/L (46-116); ASPARTATE AMINO TRANSFERASE 15 Units/L (15-37); BLOOD UREA NITROGEN 9 mg/dL (7-18); CALCIUM 8.1 mg/dL (8.5-10.1); CARBON DIOXIDE 24.7 mmol/L (21-32); CHLORIDE 107 mmol/L (98-107); CREATININE 0.76 mg/dL (0.55-1.02); GLUCOSE 82 mg/dL (65-99); SODIUM 141 mmol/L (136-145); TOTAL PROTEIN 5.6 g/dL (6.4-8.2); eGFR NON BLACK RACES > 60 (>60)
[2023-02-14] MEDS ORDERED: FENTANYL VIAL INJ 100 mcg ONE (07:34)
[2023-02-14] MEDS ORDERED: XYLOCAINE 2 % (PLAIN) ONE (07:34)
[2023-02-14] MEDS ORDERED: PRECEDEX INJ VIAL IVP ONE (07:34)
[2023-02-14] MEDS ORDERED: VERSED ONE (07:34)
[2023-02-14] MEDS ORDERED: OFIRMEV IV 1000 MG VIAL 1,000 MG/100 ML VIAL IV ONE (07:34)
[2023-02-14] MEDS ORDERED: DIPRIVAN VIAL 20 ML ONE (07:34)
--- NOTE | 2023-02-14 07:34 | EKG ---
Test Reason : pre op for surgery Blood Pressure : */* mmHG Vent. Rate : 70 BPM Atrial Rate : 70 BPM P-R Int : 142 ms QRS Dur : 80 ms QT Int : 420 ms P-R-T Axes : 26 -5 5 degrees QTc Int : 453 ms Normal sinus rhythm Possible Inferior infarct , age undetermined Abnormal ECG When compared with ECG of 22-NOV-2022 02:47, Borderline criteria for Anterolateral infarct are no longer present Borderline criteria for Inferior infarct are now present T wave inversion now evident in Inferior leads Confirmed by Ed De La Cruz ([id number]) on 02/14/2023 8:08:19 AM Referred By: Confirmed By: Ed De La Cruz
[2023-02-14] MEDS ORDERED: ROBINUL ONE (07:38)
[2023-02-14] MEDS ORDERED: PEPCID 20 MG VIAL ONE (07:38)
[2023-02-14] MEDS ORDERED: BRIDION ONE (07:38)
[2023-02-14] MEDS ORDERED: ZOFRAN INJ 4 MG VIAL ONE (07:38)
[2023-02-14] MEDS ORDERED: ZEMURON 100 MG VIAL ONE (07:38)
[2023-02-14] MEDS ORDERED: ULTANE GAS IN ONE ×3 (07:57→08:26)
[2023-02-14] MEDS ORDERED: DECADRON INJ ONE (08:25)
[2023-02-14] MEDS ORDERED: NEO-SYNEPHRINE INJ ONE (08:38)
[2023-02-14] MEDS ORDERED: LACRI-LUBE S.O.P. ONE (08:38)
[2023-02-14] MEDS ORDERED: DILAUDID INJ IVP PRN (09:18)
[2023-02-14] MEDS ORDERED: BENADRYL INJ 50 MG VIAL IVP PRN (09:18)
[2023-02-14] MEDS ORDERED: BARHEMSYS INJ IVP PRN (09:18)
[2023-02-14] MEDS ORDERED: DILAUDID INJ ONE (09:34)
--- NOTE | 2023-02-14 10:19 | OR.IMMED ---
IMMEDIATE POST-OP NOTE Immediate Post-Op Note Pre-Op Diagnosis: Incarcerated ventral hernia Post-Op Diagnosis: same Procedure: laparoscopic ventral/umbilical incarcerated repair. Description of Procedure: see operaative summary Surgeon/Adult Education Professional: Edith Findings: as above Estimated Blood Loss: minimal Complications: none Progress Notes: To floor, resume diet, po pain control.
[2023-02-14] MEDS: PERCOCET TAB 5/325 MG PO PRN ×2 (11:28→20:42)
[2023-02-14] MEDS ORDERED: STERILE WATER IRRIGATION IR ONE (14:20)
[2023-02-14] MEDS: NS 1,000 ML IV 1,000 ML IV SCH ×2 (17:23→18:48)
--- NOTE | 2023-02-14 17:43 | PCM.PROG ---
Progress Note - Progress Note for Day of Date of Exam: 02/14/23 - Subjective Subjective: IS CURRENTLY OBSERVATION STATUS FOR TREATMENT OF SMALL BOWEL OBSTRUCTION DUE TO INCARCERATED UMBILICAL/VENTRAL HERNIA, ABDOMINAL PAIN, NAUSEA AND VOMITING. TODAY, SHE IS ALERT AND ORIENTED, LYING IN BED ON MORNING ROUNDS. SHE CONTINUES TO COMPLAIN OF PAIN TO THE PERIUMBILICAL AREA AND OCCASIONAL NAUSEA. SHE DENIES SIGNIFICANT IMPROVMENT IN SYMPTOMS THIS MORNING. ON EXAMINATION, HEART IS REGULAR IN RATE AND RHYTHM. BILATERAL LUNGS ARE CLEAR TO AUSCULTATION. ABDOMEN IS ROUND, SOFT, AND NOTED WITH TENDERNESS TO THE LUQ AND PERIUMBILICAL AREA. DECREASED BOWEL SOUNDS NOTED. GOOD MOVEMENT NOTED TO UPPER AND LOWER EXTREMITIES WITH NO EDEMA. HER VITALS THIS MORNING ARE: 97.7-79-18-97%-133/66. SHE IS ON ROOM AIR. LABS WERE OBTAINED. WBC 5.8, RBC 4.25, HGB 12.8, HCT 36.6, PLT COUNT 181, SODIUM 141, POTASSIUM 4.0, CHLORIDE 107, CARBON DIOXIDE 24.7, BUN 9, CREATININE 0.76, GLUCOSE 82, CALCIUM 8.1, TOTAL BILI 0.30, AST 15, ALT 20, ALK PHOS 89, TOTAL PROTEIN 5.6, ALBUMIN 2.9. SHE IS CURRENTLY RECEIVING NORMAL SALINE AT 100 ML/HR, PEPCID 20MG IV Q12H, PROTONIX 40MG IV BID, ZOFRAN 4MG IV Q6H PRN. SHE IS SCHEDULED FOR A LAPROSCOPIC VENTRAL HERNIA REPAIR THIS MORNING. WE ARE IN AGREEMENT WITH PLANS AND PATIENT IS STABLE AND CLEARED FOR PROCEDURE. OTHERWISE, WE WILL FOLLOW-UP WITH AM LABS AND CONTINUE TO MONITOR. TIME SPENT ON CLINICAL ASSESSMENT, REVIEWING LABS AND IMAGING, DECISION MAKING, AND DOCUMENTATION GREATER THAN 45 MINUTES. - Past Medical Family Social History Past Med/Fam/Surg Hx: No changes since H&P Allergies: Allergies No Known Drug Allergies Allergy (Verified 02/12/23 12:35) - Review of Systems ROS: No change since H&P - Vital Signs and I&O's Vital Signs: Temperature 97.2 F Temperature 97.9 F Pulse Rate [Right] 78 Pulse Rate 76 Pulse Rate 81 Respiratory Rate 18 Respiratory Rate 18 Blood Pressure [Right Arm] 142/65 Blood Pressure [Left Arm] 117/56 Blood Pressure 128/65 Blood Pressure 129/70 O2 Sat by Pulse Oximetry 96 O2 Sat by Pulse Oximetry 95 Intake and Output: Intake & Output 02/12/23 02/13/23 02/14/23 02/15/23 11:59 11:59 11:59 11:59 Intake Total 1380 / 1380 3840 / 3840 360 / 360 Output Total Balance 1380 / 1380 3830 / 3830 360 / 360 - Physical Exam Oriented: Normal, Time, Person, Place Eyes: Normal Ear: Normal Nose: Normal Throat: Normal Respiratory: Generalized, Diminished Cardiovascular: Normal : Normal Auscultation: Bowel Sounds: Decreased Tenderness: LUQ, Periumbilical, Moderate Skin: Decreased Turgur Musculoskeletal: Normal Psychiatric: Normal Mood Description: Calm Affect: Normal Speech Pattern: Clear, Appropriate - Laboratory and Diagnostics Result Diagrams: 02/14/23 06:00 02/14/23 06:00 Labs: Laboratory WBC 5.8 X10^3/uL (3.6-10.0) 02/14/23 06:00 RBC 4.25 X10^6/uL (3.5-5.4) 02/14/23 06:00 Hgb 12.8 g/dL (12.0-16.0) 02/14/23 06:00 Hct 36.6 % (36.0-47.0) 02/14/23 06:00 MCV 86.1 fL (80.0-100.0) 02/14/23 06:00 MCH 30.0 pg (27.0-34.0) 02/14/23 06:00 MCHC 34.9 g/dL (33.0-35.0) 02/14/23 06:00 RDW 13.3 % (11.6-16.5) 02/14/23 06:00 Plt Count 181 X10^3/uL (150.0-450.0) 02/14/23 06:00 MPV 8.0 fL (7.4-11.0) 02/14/23 06:00 Neut % (Auto) 51.5 % (42.0-75.0) 02/14/23 06:00 Lymph % (Auto) 34.6 % (21.0-51.0) 02/14/23 06:00 [place] % (Auto) 8.1 % (0.0-13.0) 02/14/23 06:00 Eos % (Auto) 5.1 % (0.9-2.9) H 02/14/23 06:00 Baso % (Auto) 0.7 % (0.2-1.0) 02/14/23 06:00 Neut # (Auto) 3.0 x10^3/uL (2.2-4.8) 02/14/23 06:00 Lymph # (Auto) 2.0 X10^3/uL (1.3-2.9) 02/14/23 06:00 [place] # (Auto) 0.5 x10^3/uL (0.3-0.8) 02/14/23 06:00 Eos # (Auto) 0.3 x10^3/uL (0.0-0.2) H 02/14/23 06:00 Baso # (Auto) 0.0 X10^3/uL (0.0-0.1) 02/14/23 06:00 Absolute Nucleated RBC 0.1 /100WBC 02/14/23 06:00 Sodium 141 mmol/L (136-145) 02/14/23 06:00 Corrected Sodium TNP 02/14/23 06:00 Potassium 4.0 mmol/L (3.5-5.1) 02/14/23 06:00 Chloride 107 mmol/L (98-107) 02/14/23 06:00 Carbon Dioxide 24.7 mmol/L (21-32) 02/14/23 06:00 BUN 9 mg/dL (7-18) 02/14/23 06:00 Creatinine 0.76 mg/dL (0.55-1.02) 02/14/23 06:00 Est GFR (MDRD) Af Amer > 60 (>60) 02/14/23 06:00 Est GFR (MDRD) Non-Af > 60 (>60) 02/14/23 06:00 Glucose 82 mg/dL (65-99) 02/14/23 06:00 Calcium 8.1 mg/dL (8.5-10.1) L 02/14/23 06:00 Corrected Calcium 9.0 mg/dL (8.5-10.1) 02/14/23 06:00 Total Bilirubin 0.30 mg/dL (0.2-1.0) 02/14/23 06:00 AST 15 Units/L (15-37) 02/14/23 06:00 ALT 20 Units/L (12-78) 02/14/23 06:00 Alkaline Phosphatase 89 Units/L (46-116) 02/14/23 06:00 Total Protein 5.6 g/dL (6.4-8.2) L 02/14/23 06:00 Albumin 2.9 g/dL (3.4-5.0) L 02/14/23 06:00 Globulin 2.7 g/dL (2.5-4.5) 02/14/23 06:00 Albumin/Globulin Ratio 1.1 Ratio (1.1-2.1) 02/14/23 06:00 Amylase 36 Units/L (25-115) 02/12/23 13:05 Lipase 77 Units/L (73-393) 02/12/23 13:05 Specimen Type Clean catch urine 02/12/23 12:46 Urine Color Straw (YELLOW) 02/12/23 12:46 Urine Appearance Clear (CLEAR) 02/12/23 12:46 Urine pH 8.0 (5.0 - 8.0) 02/12/23 12:46 Ur Specific [place] 1.010 (1.000-1.030) 02/12/23 12:46 Urine Protein Negative (NEGATIVE) 02/12/23 12:46 Urine Glucose (UA) Negative (NEGATIVE) 02/12/23 12:46 Urine Ketones Negative (NEGATIVE) 02/12/23 12:46 Urine Blood Negative (NEGATIVE) 02/12/23 12:46 Urine Nitrite Negative (NEGATIVE) 02/12/23 12:46 Urine Bilirubin Negative (NEGATIVE) 02/12/23 12:46 Urine Urobilinogen Normal (NORMAL) 02/12/23 12:46 Ur Leukocyte Esterase Negative (NEGATIVE) 02/12/23 12:46 - Plan (1) Small bowel obstruction Status: Acute Plan: LAPROSCOPIC HERNIA REPAIR TODAY, NORMAL SALINE AT 100 ML/HR, PEPCID 20MG IV Q12H, PROTONIX 40MG IV BID, ZOFRAN 4MG IV Q6H PRN. (2) Incarcerated umbilical hernia Status: Acute (3) Abdominal pain Status: Acute Qualifiers: Abdominal location: periumbilical Qualified Code(s): R10.33 - Periumbilical pain (4) Nausea and vomiting Status: Acute Qualifiers: Vomiting type: unspecified Qualified Code(s): R11.2 - Nausea with vomiting, unspecified (5) Osteoarthritis Status: Chronic Qualifiers: Osteoarthritis location: multiple joints Osteoarthritis type: primary Qualified Code(s): M15.9 - Polyosteoarthritis, unspecified
--- NOTE | 2023-02-14 22:52 | NOTE.SOAP ---
Soap Note Note for Day of Date of Exam: 02/14/23 Subjective Data Subjective Data: S?p laparoscopic ventral hernia repair earlier today. C/O incisional tenderness and some nausea. Objective Data Temperature: 98.8 F Pulse Rate: 70 Respiratory Rate: 18 Blood Pressure: 147/67 O2 Sat by Pulse Oximetry: 95 Objective Data: All laparoscopic incisions clean, hernia resolved Assessment Assessment: s/p laparoscopic ventral hernia repair of incarcerated hernia Plan Plan: d/c home in AM.
[2023-02-15] MEDS: NS 1,000 ML IV 1,000 ML IV SCH (04:34)
[2023-02-15 06:39] LABS: BASOPHILS % (AUTO) 0.4 % (0.2-1.0); EOSINOPHILS % (AUTO) 0.2 % (0.9-2.9); HEMATOCRIT 33.8 % (36.0-47.0); HEMOGLOBIN 11.8 g/dL (12.0-16.0); LYMPHOCYTES # (AUTO) 1.9 X10^3/uL (1.3-2.9); LYMPHOCYTES % (AUTO) 15.8 % (21.0-51.0); MEAN CORPUSCULAR HGB CONC 34.7 g/dL (33.0-35.0); MEAN CORPUSCULAR VOLUME 86.4 fL (80.0-100.0); MEAN PLATELET VOLUME 8.4 fL (7.4-11.0); MONOCYTES # (AUTO) 0.9 x10^3/uL (0.3-0.8); MONOCYTES % (AUTO) 7.8 % (0.0-13.0); NEUTROPHILS # (AUTO) 9.2 x10^3/uL (2.2-4.8); NEUTROPHILS % (AUTO) 75.8 % (42.0-75.0); PLATELET COUNT 168 X10^3/uL (150.0-450.0); RED BLOOD COUNT 3.92 X10^6/uL (3.5-5.4); RED CELL DISTRIBUTION WIDTH 13.1 % (11.6-16.5); WHITE BLOOD COUNT 12.1 X10^3/uL (3.6-10.0)
[2023-02-15 07:12] LABS: ALANINE AMINOTRANSFERASE 20 Units/L (12-78); ALBUMIN 2.7 g/dL (3.4-5.0); ALKALINE PHOSPHATASE 85 Units/L (46-116); ASPARTATE AMINO TRANSFERASE 15 Units/L (15-37); BLOOD UREA NITROGEN 9 mg/dL (7-18); CALCIUM 7.8 mg/dL (8.5-10.1); CARBON DIOXIDE 25.4 mmol/L (21-32); CHLORIDE 107 mmol/L (98-107); COR CA(FOR HYPOALB) 8.8 mg/dL (8.5-10.1); CREATININE 0.88 mg/dL (0.55-1.02); GLUCOSE 102 mg/dL (65-99); SODIUM 143 mmol/L (136-145); TOTAL PROTEIN 5.3 g/dL (6.4-8.2); eGFR NON BLACK RACES > 60 (>60)
[2023-02-15 09:05] VITALS: BP 126/58; PULSE 74; TEMP 98.8; O2SAT 95
--- NOTE | 2023-02-15 10:46 | W.DIS.FURT ---
Summary of Discharge Discharge Summary of Date Date of Exam: 02/15/23 Admission Date Date of Admission: 02/13/23 Admission Diagnosis Patient Problems (Updated 02/13/23 @ 15:39 by Surendra Mendez) Small bowel obstruction (Acute) K56.609 Nausea and vomiting (Acute) R11.2 Osteoarthritis (Chronic) M19.90 Incarcerated umbilical hernia (Acute) K42.0 Abdominal pain (Acute) R10.9 Partial small bowel obstruction (Acute) K56.600 Hospital Course: 63 yo female presented to ER with abdominal pain and noted hernia at umbilical area. Recent elective [address] confirmed an incarcerated ventral/ umbilical hernia with question of early small bowel obstruction . No vomiting. Admitted and the next day had laparoscopic repair of this ventral incarcerated hernia. Doing well. Only c/o incisional tenderness. D/C home today,may shower tomorrow. Percocet 5mg , 1 poq 6 HR PRN pain. F/U Dr. Sharma 1 week. Vital Signs: Vital Signs (72 hours) 02/14/23 22:52 02/13/23 13:15 02/12/23 12:29 Temperature 98.8 F 97.9 F 98.9 F Pulse Rate 70 81 98 H Pulse Rate [Right] Respiratory Rate 18 18 20 Blood Pressure 147/67 129/70 135/77 Blood Pressure [Right Arm] O2 Sat by Pulse Oximetry 95 95 100 Oxygen Delivery Method Room Air 02/12/23 15:15 02/12/23 15:27 02/12/23 16:00 Temperature 97.4 F L Pulse Rate Pulse Rate [Right] 66 Respiratory Rate 20 18 Blood Pressure Blood Pressure [Right Arm] 170/77 O2 Sat by Pulse Oximetry 97 Oxygen Delivery Method Room Air Room Air 02/12/23 16:39 02/12/23 20:40 02/12/23 19:00 Temperature Pulse Rate Pulse Rate [Right] Respiratory Rate Blood Pressure Blood Pressure [Right Arm] O2 Sat by Pulse Oximetry Oxygen Delivery Method Room Air Room Air Room Air 02/12/23 20:00 02/12/23 23:53 02/13/23 04:00 Temperature 97.8 F 97.9 F 97.7 F Pulse Rate Pulse Rate [Right] 73 74 78 Respiratory Rate 18 18 18 Blood Pressure Blood Pressure [Right Arm] 176/88 135/77 123/58 O2 Sat by Pulse Oximetry 100 95 97 Oxygen Delivery Method Room Air Room Air Room Air 02/13/23 07:35 02/13/23 08:00 02/13/23 12:00 Temperature 98.4 F 97.9 F Pulse Rate Pulse Rate [Right] 67 81 Respiratory Rate 18 18 Blood Pressure Blood Pressure [Right Arm] 136/78 129/70 O2 Sat by Pulse Oximetry 100 95 Oxygen Delivery Method Room Air Room Air Room Air 02/13/23 16:00 02/13/23 20:00 02/13/23 19:00 Temperature 98.7 F 98.2 F Pulse Rate Pulse Rate [Right] 68 80 Respiratory Rate 18 18 Blood Pressure Blood Pressure [Right Arm] 130/72 130/61 O2 Sat by Pulse Oximetry 97 99 Oxygen Delivery Method Room Air Room Air Room Air 02/14/23 00:00 02/14/23 04:00 02/14/23 07:30 Temperature 97.9 F 97.7 F Pulse Rate Pulse Rate [Right] 78 78 Respiratory Rate 18 18 18 Blood Pressure Blood Pressure [Right Arm] 145/67 142/65 O2 Sat by Pulse Oximetry 98 99 Oxygen Delivery Method Room Air Room Air 02/14/23 07:32 02/14/23 09:10 02/14/23 09:15 Temperature 97.2 F L 97.2 F L Pulse Rate 79 84 85 Pulse Rate [Right] Respiratory Rate 18 15 18 Blood Pressure 136/66 140/71 148/68 Blood Pressure [Right Arm] O2 Sat by Pulse Oximetry 97 98 98 Oxygen Delivery Method Room Air Nasal Cannula Nasal Cannula 02/14/23 09:20 02/14/23 09:25 02/14/23 09:30 Temperature 97.2 F L 97.2 F L 97.2 F L Pulse Rate 83 79 76 Pulse Rate [Right] Respiratory Rate 18 18 18 Blood Pressure 143/66 143/67 137/65 Blood Pressure [Right Arm] O2 Sat by Pulse Oximetry 99 100 100 Oxygen Delivery Method Nasal Cannula Nasal Cannula Nasal Cannula 02/14/23 09:35 02/14/23 09:40 02/14/23 11:28 Temperature 97.2 F L 97.2 F L Pulse Rate 79 76 Pulse Rate [Right] Respiratory Rate 18 18 18 Blood Pressure 146/67 128/65 Blood Pressure [Right Arm] O2 Sat by Pulse Oximetry 96 96 Oxygen Delivery Method Room Air Room Air 02/14/23 07:00 02/14/23 12:28 02/14/23 16:00 Temperature 97.8 F Pulse Rate Pulse Rate [Right] 54 L Respiratory Rate 18 18 Blood Pressure Blood Pressure [Right Arm] 122/59 O2 Sat by Pulse Oximetry 94 L Oxygen Delivery Method Room Air Room Air 02/14/23 20:42 02/14/23 19:00 02/14/23 20:00 Temperature 98.8 F Pulse Rate Pulse Rate [Right] 70 Respiratory Rate 18 18 Blood Pressure Blood Pressure [Right Arm] 147/67 O2 Sat by Pulse Oximetry 95 Oxygen Delivery Method Room Air Room Air 02/14/23 21:42 02/15/23 00:00 02/15/23 04:00 Temperature 97.9 F 98.5 F Pulse Rate Pulse Rate [Right] 81 70 Respiratory Rate 18 18 18 Blood Pressure Blood Pressure [Right Arm] 125/62 113/58 O2 Sat by Pulse Oximetry 93 L 94 L Oxygen Delivery Method Room Air Room Air Labs: Laboratory Last Values WBC 12.1 X10^3/uL (3.6-10.0) H 02/15/23 05:05 RBC 3.92 X10^6/uL (3.5-5.4) 02/15/23 05:05 Hgb 11.8 g/dL (12.0-16.0) L 02/15/23 05:05 Hct 33.8 % (36.0-47.0) L 02/15/23 05:05 MCV 86.4 fL (80.0-100.0) 02/15/23 05:05 MCH 30.0 pg (27.0-34.0) 02/15/23 05:05 MCHC 34.7 g/dL (33.0-35.0) 02/15/23 05:05 RDW 13.1 % (11.6-16.5) 02/15/23 05:05 Plt Count 168 X10^3/uL (150.0-450.0) 02/15/23 05:05 MPV 8.4 fL (7.4-11.0) 02/15/23 05:05 Neut % (Auto) 75.8 % (42.0-75.0) H 02/15/23 05:05 Lymph % (Auto) 15.8 % (21.0-51.0) L 02/15/23 05:05 [place] % (Auto) 7.8 % (0.0-13.0) 02/15/23 05:05 Eos % (Auto) 0.2 % (0.9-2.9) L 02/15/23 05:05 Baso % (Auto) 0.4 % (0.2-1.0) 02/15/23 05:05 Neut # (Auto) 9.2 x10^3/uL (2.2-4.8) H 02/15/23 05:05 Lymph # (Auto) 1.9 X10^3/uL (1.3-2.9) 02/15/23 05:05 [place] # (Auto) 0.9 x10^3/uL (0.3-0.8) H 02/15/23 05:05 Eos # (Auto) 0.0 x10^3/uL (0.0-0.2) 02/15/23 05:05 Baso # (Auto) 0.0 X10^3/uL (0.0-0.1) 02/15/23 05:05 Absolute Nucleated RBC 0.0 /100WBC 02/15/23 05:05 Sodium 143 mmol/L (136-145) 02/15/23 05:05 Corrected Sodium TNP 02/15/23 05:05 Potassium 4.0 mmol/L (3.5-5.1) 02/15/23 05:05 Chloride 107 mmol/L (98-107) 02/15/23 05:05 Carbon Dioxide 25.4 mmol/L (21-32) 02/15/23 05:05 BUN 9 mg/dL (7-18) 02/15/23 05:05 Creatinine 0.88 mg/dL (0.55-1.02) 02/15/23 05:05 Est GFR (MDRD) Af Amer > 60 (>60) 02/15/23 05:05 Est GFR (MDRD) Non-Af > 60 (>60) 02/15/23 05:05 Glucose 102 mg/dL (65-99) H 02/15/23 05:05 Calcium 7.8 mg/dL (8.5-10.1) L 02/15/23 05:05 Corrected Calcium 8.8 mg/dL (8.5-10.1) 02/15/23 05:05 Total Bilirubin 0.10 mg/dL (0.2-1.0) L 02/15/23 05:05 AST 15 Units/L (15-37) 02/15/23 05:05 ALT 20 Units/L (12-78) 02/15/23 05:05 Alkaline Phosphatase 85 Units/L (46-116) 02/15/23 05:05 Total Protein 5.3 g/dL (6.4-8.2) L 02/15/23 05:05 Albumin 2.7 g/dL (3.4-5.0) L 02/15/23 05:05 Globulin 2.6 g/dL (2.5-4.5) 02/15/23 05:05 Albumin/Globulin Ratio 1.0 Ratio (1.1-2.1) L 02/15/23 05:05 Amylase 36 Units/L (25-115) 02/12/23 13:05 Lipase 77 Units/L (73-393) 02/12/23 13:05 Specimen Type Clean catch urine 02/12/23 12:46 Urine Color Straw (YELLOW) 02/12/23 12:46 Urine Appearance Clear (CLEAR) 02/12/23 12:46 Urine pH 8.0 (5.0 - 8.0) 02/12/23 12:46 Ur Specific [place] 1.010 (1.000-1.030) 02/12/23 12:46 Urine Protein Negative (NEGATIVE) 02/12/23 12:46 Urine Glucose (UA) Negative (NEGATIVE) 02/12/23 12:46 Urine Ketones Negative (NEGATIVE) 02/12/23 12:46 Urine Blood Negative (NEGATIVE) 02/12/23 12:46 Urine Nitrite Negative (NEGATIVE) 02/12/23 12:46 Urine Bilirubin Negative (NEGATIVE) 02/12/23 12:46 Urine Urobilinogen Normal (NORMAL) 02/12/23 12:46 Ur Leukocyte Esterase Negative (NEGATIVE) 02/12/23 12:46 Reason For Visit: SMALL BOWEL OBSTRUCTION, ABDOMIAL PAIN Discharge Diagnosis All Active Problems (Updated 02/13/23 @ 15:39 by Surendra Mendez) Small bowel obstruction (Acute) Nausea and vomiting (Acute) Osteoarthritis (Chronic) Incarcerated umbilical hernia (Acute) Fever (Acute) Abdominal pain (Acute) Depression (Chronic) Hormone replacement therapy (HRT) (Chronic) Cholecystectomy planned (Acute) Bronchopneumonia (Acute) Failure of outpatient treatment (Acute) Arthritis (Chronic) Sleep apnea (Chronic) COVID-19 (Acute) Acute asthmatic bronchitis (Acute) Shortness of breath (Acute) Abdominal pain (Acute) Partial small bowel obstruction (Acute) Plan of Treatment: Continue with present treatment and follow up plan. Pt is to keep follow up appointment as instructed and take medications as ordered. Discharge Medications Discharge Medications: No Known Drug Allergies Allergy (Verified 02/12/23 12:35) Discharge Disposition Assessment: SEE HOSPITAL COURSE ABOVE Discharge Plan Discharge Plan Hospital Course: 63 yo female presented to ER with abdominal pain and noted hernia at umbilical area. Recent elective [address] confirmed an incarcerated ventral/ umbilical hernia with question of early small bowel obstruction . No vomiting. Admitted and the next day had laparoscopic repair of this ventral incarcerated hernia. Doing well. Only c/o incisional tenderness. D/C home today,may shower tomorrow. Percocet 5mg , 1 poq 6 HR PRN pain. F/U Dr. Sharma 1 week. Patient Disposition: 01 HOME, SELF-CARE Condition: Stable Health Concerns: Post Hospitalization: new medications and changes needed to prevent readmission or further decline. Pt educated and given instructions on all concerns. Care Plan Goals: Problem: Pain/Alteration in Comfort Goal: Improve/ Resolve Pain; Achieve Pain Tolerance Instructions: Take pain medications as prescribed. Contact your primary care provider if your pain is unrelieved or worsens. Follow up with primary care provider as directed. Plan of Treatment: Continue with present treatment and follow up plan. Pt is to keep follow up appointment as instructed and take medications as ordered. Assessment: SEE HOSPITAL COURSE ABOVE Prescription drug monitoring program results: PDMP reviewed and no concerns identified Prescriptions: New ciprofloxacin HCl [Cipro] 500 mg tablet 500 mg PO BID Qty: 20 0RF oxycodone-acetaminophen 5-325 mg Tablet 1 ea PO Q6H MDD 4 PRNQty: 40 0RF Rx Instructions: TAKE ONE TABLET EVERY 6 HOURS NEEDED FOR PAIN Continued Wegovy 2.4 mg/0.75 mL pen injector 2.4 mg SUBCUT QWEEK Orders to Discharge Patient Discharge Orders: Discharge (Routine); Ordered 02/15/23 Ordered By: Surendra Mendez Follow ups/Referrals Follow ups/Referrals: BRIEN BRUSH [Primary Care Provider] - 1 WEEK Rod Sharma [STAFF PHYSICIAN] - 1 WEEK Instructions Instructions: Umbilical Hernia, Adult, Abdominal Pain, Adult, Hernia, Adult, [id number] Activity Restrictions/Additional Instructions: DIET TOLERATED. NO HEAVY LIFTING Stand Alone Forms: Excuse From Work or School
--- NOTE | 2023-02-16 12:49 | DR.OPNOTE ---
OP NOTE Pre-Op Diagnosis: Incarcerated ventral/ umbilical hernia , ? of bowel obstruction Post-Op Diagnosis: same , but no bowel obsrtruction Procedure Date Date Of Procedure: 02/14/23 Procedure: PROCEDURE : Laparoscopic repair of incarcerated ventral/umbilical hernia NARRATIVE: The patient was taken to the operative suite, placed in the supine position and general endotracheal anesthesia induced. The entire abdomen prepped and draped in sterile fashion. Time out for the procedure obtained. Gentle pressure applied to the hernia and most of this was reduced prior to beginning the case. 5 mm trocar was placed through a 5 mm incision to the right side of the abdomen on line with the umbilicus using a optical trocar . The abdomen was insufflated to 15 mm of mercury using carbon dioxide. Under direct vision a 12 mm trocar was placed inferior to the initial trocar and a 5 mm trocar placed above the initial trocar There was an obvious incarcerated hernia. The hernia had been mostly reduced. There was no dilated bowel consistent with obstruction. The omentum was taking down sharply with electrocautery. A piece of 15 cm by 10 cm oval Ventralight mesh had 3-0 Vicryl sutures placed in four quadrants. Mesh was submerged in saline, rolled up and placed in the abdomen through the 12 mm trocar site .The mesh was unrolled and placed with the long axis in the cephalad /caudad position to cover the ventral defect. 5 mm incisions made in accordance with the shape of the mesh around the mesh in four quadrants and the 3-0 Vicryl sutures brought through these incisions with a needle passer.. When tied in position the mesh had been snugged against the abdominal wall . The mesh secured to the abdominal wall using 30 absorbable tacks. All trocars removed . The incision through which trocars had been placed were closed with 3- Vicryl interrupted sutures and the skin closed with steri strips . The 5 mm incisions that the the holding sutures were brought up through were closed with steri-strips only. Local anesthesia of 0.5 % Marcaine was injected in all of these incisions. Patient was extubated and taken to the PACU in good condition. Type of Anesthesia: General Anesthetic w/ETT Findings: Incarcerated ventral hernia at umbilicus involving omentum and small bowel, no obstruction Type of Fluids Used:: Lactated Ringers EBL: minmal Complications:: none Needle/Sponge Count:: correct Disposition/Condition: Pt. tolerated procedure without difficulty. Extubated in the OR and taken to PACU in stable condition.
[2023-02-17] MEDS ORDERED: [UNRECOGNIZED DRUG - OTHER] SUBCUT SCH (07:42)
[2023-02-17] MEDS ORDERED: SEMAGLUTIDE 2.4 MG/0.75 ML SUBCUT SCH (07:42)
== END 2023-02-15 13:15 | disposition home or self-care (01) ==
LOC: SUPCPDRO → ER 12:16 → MED/SURG 12:16
PROVIDERS: ADMIT Internal Medicine; ATTEND Internal Medicine
DX: R94.31 Abnormal electrocardiogram [ECG] [EKG]; K56.690 Other partial intestinal obstruction; R10.33 Periumbilical pain; K42.0 Umbilical hernia with obstruction, without gangrene; M19.90 Unspecified osteoarthritis, unspecified site; R11.2 Nausea with vomiting, unspecified

== ENCOUNTER 2023-03-29 10:31 | Observation (INO) ==
[2023-03-29 15:45] LABS: BASOPHILS # (AUTO) 0.1 X10^3/uL (0.0-0.1); BASOPHILS % (AUTO) 0.9 % (0.2-1.0); EOSINOPHILS # (AUTO) 0.5 x10^3/uL (0.0-0.2); EOSINOPHILS % (AUTO) 7.3 % (0.9-2.9); HEMATOCRIT 35.6 % (36.0-47.0); HEMOGLOBIN 12.1 g/dL (12.0-16.0); LYMPHOCYTES # (AUTO) 2.1 X10^3/uL (1.3-2.9); LYMPHOCYTES % (AUTO) 28.3 % (21.0-51.0); MEAN CORPUSCULAR HEMOGLOBIN 29.8 pg (27.0-34.0); MEAN CORPUSCULAR VOLUME 87.7 fL (80.0-100.0); MEAN PLATELET VOLUME 7.6 fL (7.4-11.0); MONOCYTES # (AUTO) 0.5 x10^3/uL (0.3-0.8); NEUTROPHILS # (AUTO) 4.2 x10^3/uL (2.2-4.8); NEUTROPHILS % (AUTO) 56.5 % (42.0-75.0); PLATELET COUNT 192 X10^3/uL (150.0-450.0); RED BLOOD COUNT 4.06 X10^6/uL (3.5-5.4); RED CELL DISTRIBUTION WIDTH 14.5 % (11.6-16.5); WHITE BLOOD COUNT 7.4 X10^3/uL (3.6-10.0)
[2023-03-29 16:10] LABS: ALANINE AMINOTRANSFERASE 33 Units/L (12-78); ALBUMIN 3.3 g/dL (3.4-5.0); ALKALINE PHOSPHATASE 142 Units/L (46-116); ASPARTATE AMINO TRANSFERASE 17 Units/L (15-37); BLOOD UREA NITROGEN 16 mg/dL (7-18); CALCIUM 8.2 mg/dL (8.5-10.1); CARBON DIOXIDE 30.5 mmol/L (21-32); CHLORIDE 107 mmol/L (98-107); COR CA(FOR HYPOALB) 8.8 mg/dL (8.5-10.1); CREATININE 1.01 mg/dL (0.55-1.02); GLUCOSE 101 mg/dL (65-99); SODIUM 143 mmol/L (136-145); TOTAL PROTEIN 6.1 g/dL (6.4-8.2); eGFR NON BLACK RACES 59 (>60)
[2023-03-29] MEDS: ZOSYN VIAL 3.375 GRAMS 3.375 G in NS 100 ML IV 100 ML IV SCH ×2 (18:20→22:44)
[2023-03-29] MEDS: NS 1,000 ML IV 1,000 ML IV SCH (18:20)
[2023-03-29] MEDS ORDERED: NS 500 ML IV 500 ML IV PRN (19:20)
[2023-03-30] MEDS: NS 1,000 ML IV 1,000 ML IV SCH ×4 (03:30→18:04)
[2023-03-30] MEDS: ZOSYN VIAL 3.375 GRAMS 3.375 G in NS 100 ML IV 100 ML IV SCH ×3 (05:06→21:10)
[2023-03-30 06:40] LABS: BASOPHILS % (AUTO) 0.7 % (0.2-1.0); EOSINOPHILS # (AUTO) 0.5 x10^3/uL (0.0-0.2); EOSINOPHILS % (AUTO) 8.2 % (0.9-2.9); HEMATOCRIT 31.9 % (36.0-47.0); HEMOGLOBIN 10.8 g/dL (12.0-16.0); LYMPHOCYTES % (AUTO) 35.6 % (21.0-51.0); MEAN CORPUSCULAR HEMOGLOBIN 29.7 pg (27.0-34.0); MEAN CORPUSCULAR HGB CONC 33.8 g/dL (33.0-35.0); MEAN CORPUSCULAR VOLUME 87.7 fL (80.0-100.0); MEAN PLATELET VOLUME 7.9 fL (7.4-11.0); MONOCYTES # (AUTO) 0.5 x10^3/uL (0.3-0.8); MONOCYTES % (AUTO) 8.2 % (0.0-13.0); NEUTROPHILS # (AUTO) 2.6 x10^3/uL (2.2-4.8); NEUTROPHILS % (AUTO) 47.3 % (42.0-75.0); PLATELET COUNT 160 X10^3/uL (150.0-450.0); RED BLOOD COUNT 3.64 X10^6/uL (3.5-5.4); RED CELL DISTRIBUTION WIDTH 14.5 % (11.6-16.5); WHITE BLOOD COUNT 5.5 X10^3/uL (3.6-10.0)
[2023-03-30 06:49] LABS: ALANINE AMINOTRANSFERASE 29 Units/L (12-78); ALBUMIN 2.6 g/dL (3.4-5.0); ALKALINE PHOSPHATASE 119 Units/L (46-116); ASPARTATE AMINO TRANSFERASE 17 Units/L (15-37); BLOOD UREA NITROGEN 16 mg/dL (7-18); CALCIUM 7.5 mg/dL (8.5-10.1); CARBON DIOXIDE 26.6 mmol/L (21-32); CHLORIDE 110 mmol/L (98-107); COR CA(FOR HYPOALB) 8.6 mg/dL (8.5-10.1); CREATININE 0.94 mg/dL (0.55-1.02); GLUCOSE 94 mg/dL (65-99); POTASSIUM 4.3 mmol/L (3.5-5.1); SODIUM 144 mmol/L (136-145); eGFR NON BLACK RACES > 60 (>60)
[2023-03-30] MEDS: LOVENOX INJ 40 MG SYR SC SCH (09:51)
[2023-03-30] MEDS: LASIX IVP SCH ×2 (10:19→17:58)
--- NOTE | 2023-03-30 10:19 | DR.UPDATE ---
H&P Update Prescription drug monitoring program results: PDMP reviewed and no concerns identified H&P Reviewed: Yes Any changes to H&P?: Yes Changes noted:: WAS ADMITTED TO THE HOSPITAL OBSERVATION STATUS FOR FURTHER TREATMENT AND EVALUATION OF BILATERAL LOWER EXTREMITY CELLULITIS, FAILED OUTPATIENT TREATMENT. PATIENT HAS RECENTLY TAKEN BACTRIM DS 1 TAB BID X 10 DAYS AND CIPRO 500MG BID X 10 DAYS WITHOUT IMPROVEMENT IN SYMPTOMS. ON ARRIVAL TO THE HOSPITAL, HER VITALS WERE: 98.4-84-20-99%-119/56. LABS WERE OBTAINED. WBC 7.4, RBC 4.06, HGB 12.1, HCT 35.6, PLT COUNT 192, SODIUM 143, POTASSIUM 4.0, CHLORIDE 107, BUN 16, CREATININE 1.01, GLUCOSE 101, CALCIUM 8.2, AST 17, ALT 33, ALK PHOS 142, TOTAL PROTEIN 6.1, ALBUMIN 3.3. BLOOD CULTURES WERE SET UP. SHE WAS STARTED ON NORMAL SALINE AT 30 ML/HR, ZOSYN 3.375G IV TID, LASIX 40MG IV Q12H, LOVENOX 40MG SC DAILY. WE PLAN TO OBTAIN BILATERAL LOWER EXTREMITY VENOUS DOPPLERS AND LOWER EXTREMITY ARTERIAL STUDIES. OTHERWISE, WE WILL FOLLOW-UP WITH AM LABS AND CONTINUE TO MONITOR. TIME SPENT ON CLINICAL ASSESSMENT, REVIEWING LABS AND IMAGING, DECISION MAKING, AND DOCUMENTATION GRATER THAN 75 MINUTES. Patient was examined?: Yes
--- NOTE | 2023-03-30 13:25 | VAS ---
HISTORYCELLULITISSTUDYLOWER EXT VENOUS, BILATERALCOMPARISONNone availableTECHNIQUEMultiple chan scale and color flow Doppler images of the deep venous system were obtained of the right and left lower extremity.FINDINGSThe deep venous system of the right and left lower extremities were evaluated from the level of the common femoral vein through the popliteal vein. Normal color flow and augmentation can be observed. In addition, normal compression is seen throughout the deep venous system.IMPRESSIONNegative for DVT.Electronically signed by: AVA LAWRENCE (Mar 30, 2023 13:24:03)
[2023-03-31] MEDS: ZOSYN VIAL 3.375 GRAMS 3.375 G in NS 100 ML IV 100 ML IV SCH ×3 (05:12→21:01)
[2023-03-31 06:34] LABS: BASOPHILS % (AUTO) 0.8 % (0.2-1.0); EOSINOPHILS # (AUTO) 0.4 x10^3/uL (0.0-0.2); EOSINOPHILS % (AUTO) 7.1 % (0.9-2.9); HEMATOCRIT 36.1 % (36.0-47.0); HEMOGLOBIN 12.4 g/dL (12.0-16.0); MEAN CORPUSCULAR HGB CONC 34.4 g/dL (33.0-35.0); MEAN CORPUSCULAR VOLUME 87.2 fL (80.0-100.0); MEAN PLATELET VOLUME 7.7 fL (7.4-11.0); MONOCYTES # (AUTO) 0.5 x10^3/uL (0.3-0.8); MONOCYTES % (AUTO) 8.4 % (0.0-13.0); NEUTROPHILS # (AUTO) 2.9 x10^3/uL (2.2-4.8); NEUTROPHILS % (AUTO) 49.7 % (42.0-75.0); PLATELET COUNT 187 X10^3/uL (150.0-450.0); RED BLOOD COUNT 4.13 X10^6/uL (3.5-5.4); RED CELL DISTRIBUTION WIDTH 14.4 % (11.6-16.5); WHITE BLOOD COUNT 5.8 X10^3/uL (3.6-10.0)
[2023-03-31 06:36] LABS: ALANINE AMINOTRANSFERASE 33 Units/L (12-78); ALKALINE PHOSPHATASE 130 Units/L (46-116); ASPARTATE AMINO TRANSFERASE 23 Units/L (15-37); BLOOD UREA NITROGEN 14 mg/dL (7-18); CALCIUM 7.8 mg/dL (8.5-10.1); CARBON DIOXIDE 32.9 mmol/L (21-32); CHLORIDE 104 mmol/L (98-107); COR CA(FOR HYPOALB) 8.6 mg/dL (8.5-10.1); CREATININE 1.06 mg/dL (0.55-1.02); GLUCOSE 92 mg/dL (65-99); POTASSIUM 3.9 mmol/L (3.5-5.1); SODIUM 142 mmol/L (136-145); TOTAL PROTEIN 5.7 g/dL (6.4-8.2); eGFR NON BLACK RACES 56 (>60)
[2023-03-31] MEDS: LASIX IVP SCH ×2 (09:45→17:18)
[2023-03-31] MEDS: LOVENOX INJ 40 MG SYR SC SCH (09:45)
[2023-03-31] MEDS: NS 1,000 ML IV 1,000 ML IV SCH ×2 (10:37→17:54)
[2023-03-31] MEDS ORDERED: TYLENOL 325 MG TAB PO PRN (18:00)
[2023-03-31] MEDS ORDERED: TYLENOL 325 MG TAB PO ONE (18:01)
--- NOTE | 2023-03-31 19:24 | PCM.PROG ---
Progress Note - Progress Note for Day of Date of Exam: 03/31/23 - Subjective Subjective: IS CURRENTLY OBSERVATION STATUS FOR TREATMENT OF BILATERAL LOWER EXTREMITY CELLULITIS. SHE DENIES COMINT INTO CONTACT WITH ANYTHING NEW AND DENIES ANY KNOWN ALLERGIES. SHE DENIES ITCHING OR PAIN TO THE AREA. SHE DOES ADMIT TO TAKING BACTRIM AND CIPRO RECENTLY WITHOUT IMPROVEMENT IN SYMPTOMS. SHE HAS A PMH OF SLEEP APNEA, KIDNEY STONES, AND HYSTERECTOMY. ON EXAMINATION TODAY, HEART IS REGULAR IN RATE AND RHYTHM. BILATERAL LUNGS ARE CLEAR TO AUSCULTATION. ABDOMEN IS ROUND, SOFT, AND NON-TENDER WITH NORMAL BOWEL SOUNDS NOTED IN ALL QUADRANTS. BILATERAL LOWER EXTREMITIES ARE NOTED WITH ERYTHEMA AND TRACE EDEMA. HER VITALS THIS MORNING ARE: 97.9-80-18-96%-119/68. LABS WERE OBTAINED. WBC 5.8, RBC 4.13, HGB 12.4, HCT 36.1, PLT COUNT 187, SODIUM 142, POTASSIUM 3.9, CHLORIDE 104, CARBON DIOXIDE 32.9, BUN 14, CREATININE 1.06, GLUCOSE 92, CALCIUM 7.8, AST 23, ALT 33, ALK PHOS 130, TOTAL PROTEIN 5.7, ALBUMIN 3.0. BLOOD CULTURES ARE PENDING. BILATERAL LOWER EXTREMITY VENOUS DOPPLER WAS OBTAINED AND REVEALED: The deep venous system of the right and left lower extremities were evaluated from the level of the common femoral veinthrough the popliteal vein. Normal color flow and augmentation can be observed. In addition, normal compression is seen throughout the deep venous system. SHE IS CURRENTLY RECEIVING NORMAL SALINE AT 30 ML/HR, ZOSYN 3.375G IV TID, LASIX 40MG IV Q12H, LOVENOX 40MG SC DAILY. WE WILL CONTINUE WITH CURRENT PLAN OF CARE TODAY. OTHERWISE, WE WILL FOLLOW-UP WITH AM LABS AND CONTINUE TO MONITOR. TIME SPENT ON CLINICAL ASSESSMENT, REVIEWING LABS AND IMAGING, DECISION MAKING, AND DOCUMENTATION GREATER THAN 45 MINUTES. - Past Medical Family Social History Past Med/Fam/Surg Hx: No changes since H&P Allergies: Allergies No Known Drug Allergies Allergy (Verified 03/20/23 11:34) - Review of Systems ROS: No change since H&P - Vital Signs and I&O's Vital Signs: Vital Signs Temperature 98.5 F Temperature 98.1 F Pulse Rate [Left] 68 Pulse Rate [Left] 72 Respiratory Rate 18 Respiratory Rate 20 Respiratory Rate 18 Blood Pressure [Right Arm] 136/73 Blood Pressure [Right Arm] 112/63 O2 Sat by Pulse Oximetry 100 O2 Sat by Pulse Oximetry 98 Intake and Output: Intake & Output 03/29/23 03/30/23 03/31/23 04/01/23 11:59 11:59 11:59 11:59 Intake Total 613 / 613 3135 / 3135 840 / 840 Balance 613 / 613 3135 / 3135 840 / 840 - Physical Exam Oriented: Normal Eyes: Normal Ear: Normal Nose: Normal Throat: Normal Respiratory: Normal Cardiovascular: Normal : Normal Auscultation: Bowel Sounds: Normal Palpation: Normal Tenderness: Normal Skin: Red, Hot, Other (TRACE LOWER EXTREMITY EDEMA ) Musculoskeletal: Normal Psychiatric: Normal Mood Description: Calm Affect: Normal Speech Pattern: Clear, Appropriate - Laboratory and Diagnostics Result Diagrams: 03/31/23 05:34 03/31/23 05:34 Labs: 03/29/23 15:32 Blood Blood Culture - Preliminary 03/29/23 15:25 Blood Blood Culture - Preliminary Laboratory WBC 5.8 X10^3/uL (3.6-10.0) 03/31/23 05:34 RBC 4.13 X10^6/uL (3.5-5.4) 03/31/23 05:34 Hgb 12.4 g/dL (12.0-16.0) 03/31/23 05:34 Hct 36.1 % (36.0-47.0) 03/31/23 05:34 MCV 87.2 fL (80.0-100.0) 03/31/23 05:34 MCH 30.0 pg (27.0-34.0) 03/31/23 05:34 MCHC 34.4 g/dL (33.0-35.0) 03/31/23 05:34 RDW 14.4 % (11.6-16.5) 03/31/23 05:34 Plt Count 187 X10^3/uL (150.0-450.0) 03/31/23 05:34 MPV 7.7 fL (7.4-11.0) 03/31/23 05:34 Neut % (Auto) 49.7 % (42.0-75.0) 03/31/23 05:34 Lymph % (Auto) 34.0 % (21.0-51.0) 03/31/23 05:34 [place] % (Auto) 8.4 % (0.0-13.0) 03/31/23 05:34 Eos % (Auto) 7.1 % (0.9-2.9) H 03/31/23 05:34 Baso % (Auto) 0.8 % (0.2-1.0) 03/31/23 05:34 Neut # (Auto) 2.9 x10^3/uL (2.2-4.8) 03/31/23 05:34 Lymph # (Auto) 2.0 X10^3/uL (1.3-2.9) 03/31/23 05:34 [place] # (Auto) 0.5 x10^3/uL (0.3-0.8) 03/31/23 05:34 Eos # (Auto) 0.4 x10^3/uL (0.0-0.2) H 03/31/23 05:34 Baso # (Auto) 0.0 X10^3/uL (0.0-0.1) 03/31/23 05:34 Absolute Nucleated RBC 0.1 /100WBC 03/31/23 05:34 Sodium 142 mmol/L (136-145) 03/31/23 05:34 Corrected Sodium TNP 03/31/23 05:34 Potassium 3.9 mmol/L (3.5-5.1) 03/31/23 05:34 Chloride 104 mmol/L (98-107) 03/31/23 05:34 Carbon Dioxide 32.9 mmol/L (21-32) H 03/31/23 05:34 BUN 14 mg/dL (7-18) 03/31/23 05:34 Creatinine 1.06 mg/dL (0.55-1.02) H 03/31/23 05:34 Est GFR (MDRD) Af Amer > 60 (>60) 03/31/23 05:34 Est GFR (MDRD) Non-Af 56 (>60) L 03/31/23 05:34 Glucose 92 mg/dL (65-99) 03/31/23 05:34 Calcium 7.8 mg/dL (8.5-10.1) L 03/31/23 05:34 Corrected Calcium 8.6 mg/dL (8.5-10.1) 03/31/23 05:34 Total Bilirubin 0.40 mg/dL (0.2-1.0) 03/31/23 05:34 AST 23 Units/L (15-37) 03/31/23 05:34 ALT 33 Units/L (12-78) 03/31/23 05:34 Alkaline Phosphatase 130 Units/L (46-116) H 03/31/23 05:34 Total Protein 5.7 g/dL (6.4-8.2) L 03/31/23 05:34 Albumin 3.0 g/dL (3.4-5.0) L 03/31/23 05:34 Globulin 2.7 g/dL (2.5-4.5) 03/31/23 05:34 Albumin/Globulin Ratio 1.1 Ratio (1.1-2.1) 03/31/23 05:34 - Plan (1) Bilateral lower leg cellulitis Status: Acute Plan: NORMAL SALINE AT 30 ML/HR, ZOSYN 3.375G IV TID, LASIX 40MG IV Q12H, LO VENOX 40MG SC DAILY (2) Failure of outpatient treatment Status: Acute
[2023-04-01] MEDS: ZOSYN VIAL 3.375 GRAMS 3.375 G in NS 100 ML IV 100 ML IV SCH ×3 (05:05→21:00)
[2023-04-01 05:14] LABS: BASOPHILS % (AUTO) 0.8 % (0.2-1.0); EOSINOPHILS # (AUTO) 0.4 x10^3/uL (0.0-0.2); EOSINOPHILS % (AUTO) 6.7 % (0.9-2.9); HEMATOCRIT 38.8 % (36.0-47.0); HEMOGLOBIN 13.3 g/dL (12.0-16.0); LYMPHOCYTES # (AUTO) 2.3 X10^3/uL (1.3-2.9); LYMPHOCYTES % (AUTO) 37.4 % (21.0-51.0); MEAN CORPUSCULAR HGB CONC 34.4 g/dL (33.0-35.0); MEAN CORPUSCULAR VOLUME 87.4 fL (80.0-100.0); MONOCYTES # (AUTO) 0.6 x10^3/uL (0.3-0.8); MONOCYTES % (AUTO) 9.9 % (0.0-13.0); NEUTROPHILS # (AUTO) 2.8 x10^3/uL (2.2-4.8); NEUTROPHILS % (AUTO) 45.2 % (42.0-75.0); PLATELET COUNT 212 X10^3/uL (150.0-450.0); RED BLOOD COUNT 4.44 X10^6/uL (3.5-5.4); RED CELL DISTRIBUTION WIDTH 14.7 % (11.6-16.5); WHITE BLOOD COUNT 6.1 X10^3/uL (3.6-10.0)
[2023-04-01 05:29] LABS: BLOOD UREA NITROGEN 19 mg/dL (7-18); CARBON DIOXIDE 32.3 mmol/L (21-32); CHLORIDE 101 mmol/L (98-107); CREATININE 1.11 mg/dL (0.55-1.02); POTASSIUM 3.8 mmol/L (3.5-5.1); SODIUM 141 mmol/L (136-145)
[2023-04-01 05:30] LABS: ALANINE AMINOTRANSFERASE 32 Units/L (12-78); ALBUMIN 3.2 g/dL (3.4-5.0); ALKALINE PHOSPHATASE 140 Units/L (46-116); ASPARTATE AMINO TRANSFERASE 19 Units/L (15-37); CALCIUM 8.7 mg/dL (8.5-10.1); COR CA(FOR HYPOALB) 9.3 mg/dL (8.5-10.1); GLUCOSE 102 mg/dL (65-99); TOTAL PROTEIN 6.3 g/dL (6.4-8.2); eGFR NON BLACK RACES 53 (>60)
[2023-04-01] MEDS: LASIX IVP SCH ×2 (08:40→17:06)
[2023-04-01] MEDS: LOVENOX INJ 40 MG SYR SC SCH (08:40)
[2023-04-01] MEDS: NS 1,000 ML IV 1,000 ML IV SCH ×2 (12:19→21:00)
--- NOTE | 2023-04-01 17:30 | PCM.PROG ---
Progress Note - Progress Note for Day of Date of Exam: 04/01/23 - Subjective Subjective: IS CURRENTLY OBSERVATION STATUS FOR TREATMENT OF BILATERAL LOWER EXTREMITY CELLULITIS WITH FAILURE OF OURTPATIENT TREATMENT. SHE DENIES COMING INTO CONTACT WITH ANYTHING NEW AND DENIES ANY KNOWN ALLERGIES. SHE DENIES ITCHING OR PAIN TO THE AREA. SHE DOES ADMIT TO TAKING BACTRIM AND CIPRO RECENTLY WITHOUT IMPROVEMENT IN SYMPTOMS. SHE HAS A PMH OF SLEEP APNEA, KIDNEY STONES, AND HYSTERECTOMY. ON EXAMINATION TODAY, HEART IS REGULAR IN RATE AND RHYTHM. BILATERAL LUNGS ARE CLEAR TO AUSCULTATION. ABDOMEN IS ROUND, SOFT, AND NON- TENDER WITH NORMAL BOWEL SOUNDS NOTED IN ALL QUADRANTS. BILATERAL LOWER EXTREMITIES ARE NOTED WITH ERYTHEMA AND TRACE EDEMA. THERE DOES APPEAR TO BE SOME IMPROVEMENT SINCE YESTERDAY. HER VITALS THIS MORNING ARE: 98.2-76-18-93%-114/75. LABS WERE OBTAINED. WBC 6.1, RBC 4.44, HGB 13.3, HCT 38.8, PLT COUNT 212, SODIUM 141, POTASSIUM 3.8, CHLORIDE 101, CARBON DIOXIDE 32.3, BUN 19, CREATININE 1.11, GLUOSE 102, CALCIUM 8.7, TOTAL BILI 0.30, AST 19, ALT 32, ALK PHOS 140, TOTAL PROTEIN 6.3, ALBUMIN 3.2. BLOOD CULTURES ARE PENDING. BILATERAL LOWER EXTREMITY VENOUS DOPPLER WAS OBTAINED AND REVEALED: The deep venous system of the right and left lower extremities were evaluated from the level of the common femoral vein through the popliteal vein. Normal color flow and augmentation can be observed. In addition, normal compression is seen throughout the deep venous system. SHE IS CURRENTLY RECEIVING NORMAL SALINE AT 30 ML/HR, ZOSYN 3.375G IV TID, LASIX 40MG IV Q12H, LOVENOX 40MG SC DAILY. WE WILL CONTINUE WITH CURRENT PLAN OF CARE TODAY. OTHERWISE, WE WILL FOLLOW-UP WITH AM LABS AND CONTINUE TO MONITOR. TIME SPENT ON CLINICAL ASSESSMENT, REVIEWING LABS AND IMAGING, DECISION MAKING, AND DOCUMENTATION GREATER THAN 45 MINUTES. - Past Medical Family Social History Past Med/Fam/Surg Hx: No changes since H&P Allergies: Allergies No Known Drug Allergies Allergy (Verified 03/20/23 11:34) - Review of Systems ROS: No change since H&P - Vital Signs and I&O's Vital Signs: Vital Signs Temperature 97.8 F Temperature 97.7 F Pulse Rate [Left] 74 Pulse Rate [Left] 84 Respiratory Rate 18 Respiratory Rate 18 Blood Pressure [Right Arm] 116/58 Blood Pressure [Right Arm] 112/65 O2 Sat by Pulse Oximetry 95 O2 Sat by Pulse Oximetry 98 Intake and Output: Intake & Output 03/30/23 03/31/23 04/01/23 04/02/23 11:59 11:59 11:59 11:59 Intake Total 613 / 613 3135 / 3135 2438 / 2438 840 / 840 Balance 613 / 613 3135 / 3135 2438 / 2438 840 / 840 - Physical Exam Oriented: Normal Eyes: Normal Ear: Normal Nose: Normal Throat: Normal Respiratory: Normal Cardiovascular: Normal : Normal Auscultation: Bowel Sounds: Normal Tenderness: Normal Skin: Red, Hot, Other (TRACE LOWER EXTREMITY EDEMA ) Musculoskeletal: Normal Psychiatric: Normal Mood Description: Calm Affect: Normal Speech Pattern: Clear, Appropriate - Laboratory and Diagnostics Result Diagrams: 04/01/23 04:27 04/01/23 04:27 Labs: 03/29/23 15:32 Blood Blood Culture - Preliminary 03/29/23 15:25 Blood Blood Culture - Preliminary Laboratory WBC 6.1 X10^3/uL (3.6-10.0) 04/01/23 04:27 RBC 4.44 X10^6/uL (3.5-5.4) 04/01/23 04:27 Hgb 13.3 g/dL (12.0-16.0) 04/01/23 04:27 Hct 38.8 % (36.0-47.0) 04/01/23 04:27 MCV 87.4 fL (80.0-100.0) 04/01/23 04:27 MCH 30.0 pg (27.0-34.0) 04/01/23 04:27 MCHC 34.4 g/dL (33.0-35.0) 04/01/23 04:27 RDW 14.7 % (11.6-16.5) 04/01/23 04:27 Plt Count 212 X10^3/uL (150.0-450.0) 04/01/23 04:27 MPV 8.0 fL (7.4-11.0) 04/01/23 04:27 Neut % (Auto) 45.2 % (42.0-75.0) 04/01/23 04:27 Lymph % (Auto) 37.4 % (21.0-51.0) 04/01/23 04:27 [place] % (Auto) 9.9 % (0.0-13.0) 04/01/23 04:27 Eos % (Auto) 6.7 % (0.9-2.9) H 04/01/23 04:27 Baso % (Auto) 0.8 % (0.2-1.0) 04/01/23 04:27 Neut # (Auto) 2.8 x10^3/uL (2.2-4.8) 04/01/23 04:27 Lymph # (Auto) 2.3 X10^3/uL (1.3-2.9) 04/01/23 04:27 [place] # (Auto) 0.6 x10^3/uL (0.3-0.8) 04/01/23 04:27 Eos # (Auto) 0.4 x10^3/uL (0.0-0.2) H 04/01/23 04:27 Baso # (Auto) 0.0 X10^3/uL (0.0-0.1) 04/01/23 04:27 Absolute Nucleated RBC 0.0 /100WBC 04/01/23 04:27 Sodium 141 mmol/L (136-145) 04/01/23 04:27 Corrected Sodium TNP 04/01/23 04:27 Potassium 3.8 mmol/L (3.5-5.1) 04/01/23 04:27 Chloride 101 mmol/L (98-107) 04/01/23 04:27 Carbon Dioxide 32.3 mmol/L (21-32) H 04/01/23 04:27 BUN 19 mg/dL (7-18) H 04/01/23 04:27 Creatinine 1.11 mg/dL (0.55-1.02) H 04/01/23 04:27 Est GFR (MDRD) Af Amer > 60 (>60) 04/01/23 04:27 Est GFR (MDRD) Non-Af 53 (>60) L 04/01/23 04:27 Glucose 102 mg/dL (65-99) H 04/01/23 04:27 Calcium 8.7 mg/dL (8.5-10.1) 04/01/23 04:27 Corrected Calcium 9.3 mg/dL (8.5-10.1) 04/01/23 04:27 Total Bilirubin 0.30 mg/dL (0.2-1.0) 04/01/23 04:27 AST 19 Units/L (15-37) 04/01/23 04:27 ALT 32 Units/L (12-78) 04/01/23 04:27 Alkaline Phosphatase 140 Units/L (46-116) H 04/01/23 04:27 Total Protein 6.3 g/dL (6.4-8.2) L 04/01/23 04:27 Albumin 3.2 g/dL (3.4-5.0) L 04/01/23 04:27 Globulin 3.1 g/dL (2.5-4.5) 04/01/23 04:27 Albumin/Globulin Ratio 1.0 Ratio (1.1-2.1) L 04/01/23 04:27 - Plan (1) Bilateral lower leg cellulitis Status: Acute Plan: NORMAL SALINE AT 30 ML/HR, ZOSYN 3.375G IV TID, LASIX 40MG IV Q12H, LOVENOX 40MG SC DAILY (2) Failure of outpatient treatment Status: Acute
[2023-04-02 04:07] VITALS: RESP 18
[2023-04-02 05:02] LABS: BASOPHILS # (AUTO) 0.1 X10^3/uL (0.0-0.1); EOSINOPHILS # (AUTO) 0.4 x10^3/uL (0.0-0.2); EOSINOPHILS % (AUTO) 5.7 % (0.9-2.9); HEMATOCRIT 37.9 % (36.0-47.0); HEMOGLOBIN 13.2 g/dL (12.0-16.0); LYMPHOCYTES # (AUTO) 2.4 X10^3/uL (1.3-2.9); LYMPHOCYTES % (AUTO) 36.6 % (21.0-51.0); MEAN CORPUSCULAR HGB CONC 34.7 g/dL (33.0-35.0); MEAN CORPUSCULAR VOLUME 86.4 fL (80.0-100.0); MEAN PLATELET VOLUME 7.8 fL (7.4-11.0); MONOCYTES # (AUTO) 0.6 x10^3/uL (0.3-0.8); MONOCYTES % (AUTO) 9.7 % (0.0-13.0); NEUTROPHILS # (AUTO) 3.1 x10^3/uL (2.2-4.8); PLATELET COUNT 202 X10^3/uL (150.0-450.0); RED BLOOD COUNT 4.38 X10^6/uL (3.5-5.4); RED CELL DISTRIBUTION WIDTH 14.5 % (11.6-16.5); WHITE BLOOD COUNT 6.6 X10^3/uL (3.6-10.0)
[2023-04-02] MEDS: ZOSYN VIAL 3.375 GRAMS 3.375 G in NS 100 ML IV 100 ML IV SCH (05:08)
[2023-04-02 05:11] LABS: ALANINE AMINOTRANSFERASE 38 Units/L (12-78); ALBUMIN 3.1 g/dL (3.4-5.0); ALKALINE PHOSPHATASE 131 Units/L (46-116); ASPARTATE AMINO TRANSFERASE 25 Units/L (15-37); BLOOD UREA NITROGEN 18 mg/dL (7-18); CALCIUM 8.4 mg/dL (8.5-10.1); CARBON DIOXIDE 33.7 mmol/L (21-32); CHLORIDE 101 mmol/L (98-107); COR CA(FOR HYPOALB) 9.1 mg/dL (8.5-10.1); CREATININE 1.13 mg/dL (0.55-1.02); GLUCOSE 99 mg/dL (65-99); POTASSIUM 3.8 mmol/L (3.5-5.1); SODIUM 142 mmol/L (136-145); TOTAL PROTEIN 6.1 g/dL (6.4-8.2); eGFR NON BLACK RACES 52 (>60)
[2023-04-02] MEDS ORDERED: K-DUR TAB 20 MEQ PO SCH ×2 (07:00→08:00)
[2023-04-02] MEDS ORDERED: CONSULT PHARMACY - POTASSIUM & MAGNESIUM XX SCH (07:00)
[2023-04-02 07:53] VITALS: BP 129/70; PULSE 72; TEMP 97.9; O2SAT 94
[2023-04-02] MEDS: LASIX IVP SCH (08:05)
[2023-04-02] MEDS: LOVENOX INJ 40 MG SYR SC SCH (08:05)
[2023-04-02] MEDS ORDERED: NS + KCL 20 MEQ/L 1,000 ML IV SCH (09:00)
== END 2023-04-02 11:45 | disposition home or self-care (01) ==
LOC: MED/SURG
PROVIDERS: ADMIT Internal Medicine; ATTEND Internal Medicine
DX: R74.8 Abnormal levels of other serum enzymes; R60.0 Localized edema; L03.115 Cellulitis of right lower limb; L03.116 Cellulitis of left lower limb